=== PATIENT | male | born 1960 | race Caucasian/White ===

== ENCOUNTER 2019-10-14 13:53 | Emergency (ER) | payer OTHER, SELFPAY ==
[2019-10-14 13:58] VITALS: BP 120/82; PULSE 58; RESP 16; TEMP 36.1; O2SAT 96
--- NOTE | 2019-10-14 14:06 | DI.RAD.S_ITS ---
PROCEDURE: XR CHEST 2V INDICATIONS: chest pain TECHNIQUE: 2 views of the chest were acquired. COMPARISON: [facility], , CHEST 1 VIEW, 10/18/2014, 22:59. FINDINGS: Surgical changes and devices: None. Lungs and pleura: Lungs are clear. No pleural effusions or pneumothorax. Mediastinum: Mediastinal contours are normal. Heart size is normal. Bones and chest wall: No suspicious bony abnormalities. Soft tissues appear unremarkable. IMPRESSION: 1. No acute cardiopulmonary disease. Dictated by: Brian De La Garza M.D. on 10/14/2019 at 15:09 Approved by: Brian De La Garza M.D. on 10/14/2019 at 15:16
[2019-10-14 14:42] LABS: Add Manual Diff / Slide Review NO; Basophils Absolute Auto 100 /uL (0-100); Basophils Percent Auto 1.8 % (0-2); Eosinophils Absolute Auto 600 /uL (0-450); Hemoglobin 15.9 g/dL (13.5-17.5); Lymphocytes Absolute Auto 2800 /uL (1100-4500); Lymphocytes Percent Auto 39.4 % (25-40); Mean Corpuscular HGB Conc 35.2 % (30-36); Mean Corpuscular Hemoglobin 33.3 PG (26-34); Mean Corpuscular Volume 94.4 fL (80-100); Monocytes Absolute Auto 700 /uL (0-900); Neutrophils Absolute Auto 2900 /uL (1500-7000); Neutrophils Percent Auto 40.8 % (50-75); Platelet Count 257 X10^3/uL (150-400); Red Blood Cell Count 4.77 X10^6/uL (4.5-5.9); Red Cell Distribution Width 12.3 % (11.6-14.8)
[2019-10-14 14:53] LABS: INR 1.1 (0.9-1.3); Prothrombin Time 12.2 SECONDS (10.1-12.7)
[2019-10-14 14:54] LABS: Alanine Aminotransferase 73 IU/L (<50); Albumin 4.9 g/dL (3.5-5.0); Albumin Globulin Ratio 1.4 (1.0-2.8); Alkaline Phosphatase 72 U/L (38-126); Aspartate Aminotransferase 46 IU/L (17-59); BUN Creatinine Ratio 13.3 (6-22); Bilirubin Total 0.8 mg/dL (0.2-1.3); Blood Urea Nitrogen 12 mg/dL (9-20); Calcium 9.7 mg/dL (8.4-10.2); Carbon Dioxide 27 mmol/L (22-32); Chloride 103 mmol/L (98-107); Creatine Kinase 115 U/L (55-170); Estimated Glomerular Filt Rate > 60.0 mL/min (>60); Globulin 3.5 g/dL (1.7-4.1); Glucose 98 mg/dL (70-100); HEMOLYSIS < 15 (0-50); Lipase 75 U/L (23-300); Potassium 4.3 mmol/L (3.4-5.1); Sodium 139 mmol/L (137-145); Total Protein 8.4 g/dL (6.3-8.2)
--- NOTE | 2019-10-14 14:55 | DI.CT.S_ITS ---
PROCEDURE: CT HEAD/BRAIN WO CON INDICATIONS: Dizziness x 6 days TECHNIQUE: Noncontrast 4.5 mm thick angled axial sections acquired from the foramen magnum to the vertex, with coronal and sagittal reformats. For radiation dose reduction, the following was used: automated exposure control, adjustment of mA and/or kV according to patient size. COMPARISON: None. FINDINGS: Image quality: Excellent. CSF spaces: Basal cisterns are patent. No extra-axial fluid collections. Ventricles are normal in size and shape. Brain: No intracranial hemorrhage, mass, or mass effect. Coy-white matter interface is preserved. Skull and face: Calvarium and visualized facial bones are intact, without suspicious lesions. Sinuses: Visualized sinuses demonstrate moderate mucosal thickening within the maxillary sinuses and mild thickening in the ethmoid sinuses. An air fluid level is demonstrated in the right maxillary sinus suggestive of acute sinusitis. The mastoid air cells are clear. IMPRESSION: 1. No acute intracranial abnormality. 2. Sinus mucosal disease including moderate mucosal thickening in the maxillary sinuses. An air fluid level in the right maxillary sinus is suggestive of acute sinusitis. Dictated by: Brian De La Garza M.D. on 10/14/2019 at 15:06 Approved by: Brian De La Garza M.D. on 10/14/2019 at 15:09
[2019-10-14 14:56] LABS: PTT Partial Thromboplastin Tim 39 SECONDS (26.4-36.2)
[2019-10-14 15:06] LABS: Troponin I < 0.012 ng/mL (0.01-0.034)
[2019-10-14 15:09] LABS: Creatine Kinase MB 1.18 ng/mL (<2.37)
[2019-10-14] MEDS: MECLIZINE HCL 12.5 MG TABLET 50 MG PO (15:42)
--- NOTE | 2019-10-14 18:13 | ED_ITS ---
HPI - Neuro Symptoms/Deficit <SAMANTHA De La Garza - Last Filed: 10/14/19 21:11> General Chief Complaint: Neuro Symptoms/Deficit Stated Complaint: dizzy,nausea,headache since last Time Seen by Provider: 10/14/19 14:39 Source: patient Mode of arrival: Ambulatory Limitations: no limitations History of Present Illness HPI Narrative: The patient is a 58-year-old male former smoker with history of sinus infection who presents with a chief complaint of vertigo that has been ongoing since . Denies any chest pain that is current, did have an episode several days ago and took a nitro and resolved. Denies any current shortness of breath, nausea vomiting or diarrhea. He has not taken anything at home to feel better. He is concerned that his sinus symptoms for the past 6 weeks or so have impacted this. He complains of nasal congestion, sinus headaches that radiate to his jaw and her worse with leaning forward. He states that he occasionally has some postnasal drip, and has had green mucus. He complains of ear pressure, has been using sinus rinse but has not taken any other medications. He states his though he is spinning, states that he has had history of vertigo for years. Complains of general headache and buzzing sensation On Anticoagulants: No Related Data Home Medications Medication Instructions Recorded Confirmed atorvastatin 40 mg PO DAILY 10/14/19 10/14/19 metoprolol tartrate 50 mg PO BID 10/14/19 10/14/19 nitroglycerin [Nitrostat] 0.4 mg SUBLINGUAL PRN PRN 10/14/19 10/14/19 ranitidine HCl 150 mg PO BID 10/14/19 Previous Rx's Medication Instructions Recorded amoxicillin-pot clavulanate 1 tab PO BID #20 tab 10/14/19 meclizine 25 mg PO TID PRN #20 tab 10/14/19 Allergies Allergy/AdvReac Type Severity Reaction Status Date / Time No Known Drug Allergies Allergy Verified 10/14/19 14:04 Review of Systems <SAMANTHA De La Garza - Last Filed: 10/14/19 21:11> Review of Systems Narrative: GENERAL: Denies chills, fatigue, malaise, fever, sweats. HEENT: Denies sinus pain, ear pain, sore throat, difficulty swallowing, dizziness. RESPIRATORY: Denies dyspnea, cough, wheezing, hemoptysis, sputum. CARDIOVASCULAR: Denies chest pain, palpitations, orthopnea, edema, GASTROINTESTINAL: Denies nausea, vomiting, abdominal pain, diarrhea, constipation, melena. : Denies dysuria, frequency, incontinence, hematuria, urinary retention. MUSCULOSKELETAL: denies weakness, joint pain, or bony pain SKIN: Denies rash, skin lesions, or other NEUROLOGIC: Denies weakness, headache, numbness, change in speech, confusion, seizures, incoordination. PSYCHIATRIC: No concerning psychosocial issues. 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 Normocephalic. No temporal or scalp tenderness. EYES: Pupils equal round and reactive. Extraocular motions intact. No scleral icterus. No injection or drainage. ENT: Nose without bleeding, purulent drainage or septal hematoma. Throat without erythema, tonsillar hypertrophy or exudate. Uvula midline. Airway patent. Bulging TMs bilaterally, no erythema. Pain to sinus palpation. Sinus congestion noted NECK: Trachea midline. No JVD or lymphadenopathy. Supple, nontender, no meningeal signs. CARDIOVASCULAR: Regular rate and rhythm RESPIRATORY: Clear to auscultation. Breath sounds equal bilaterally. No wheezes, rales, or rhonchi. No cough. No increased respiratory effort. No accessory muscle use. GASTROINTESTINAL: Abdomen soft, non-tender, nondistended. No hepato- splenomegaly, or palpable masses. No guarding. EXTREMITIES: No clubbing, cyanosis, or edema. No joint tenderness, effusion, or edema noted. BACK: Nontender without deformity or crepitance. No flank tenderness. NEURO: AOx3. Interactive. Stable gait. Strength is equal upper and lower extremities bilaterally. No gross cranial nerve deficit. SKIN: No rash or erythema on visible skin Initial Vital Signs Initial Vital Signs: Vital Signs Temperature 97.0 F L 01/21/20 13:58 Pulse Rate 58 L 10/14/19 13:58 Respiratory Rate 16 10/14/19 13:58 Blood Pressure 120/82 10/14/19 13:58 Pulse Oximetry 96 10/14/19 13:58 <Jahaira Vogel DO - Last Filed: 10/23/19 01:13> Initial Vital Signs Initial Vital Signs: Vital Signs Temperature 97.0 F L 10/14/19 13:58 Pulse Rate 58 L 10/14/19 13:58 Respiratory Rate 16 10/14/19 13:58 Blood Pressure 120/82 10/14/19 13:58 Pulse Oximetry 96 10/14/19 13:58 Course <SAMANTHA De La Garza - Last Filed: 10/14/19 21:11> Orders Ordered: Discontinued Medications Meclizine HCl (Antivert) 50 mg PO NOW ONE Stop: 10/14/19 15:13 Last Admin: 10/14/19 15:42 Dose: 50 mg Documented by: ELIZABETH Vital Signs Vital signs: Vital Signs - 8 hr 10/14/19 13:58 Temperature 97.0 F L Pulse Rate 58 L Respiratory Rate 16 Blood Pressure 120/82 Pulse Oximetry 96 <DO Catalina Marin Last Filed: 10/23/19 01:13> Orders Ordered: Discontinued Medications Meclizine HCl (Antivert) 50 mg PO NOW ONE Stop: 10/14/19 15:13 Last Admin: 10/14/19 15:42 Dose: 50 mg Documented by: ELIZABETH Vital Signs Vital signs: Vital Signs - 8 hr 10/14/19 13:58 Temperature 97.0 F L Pulse Rate 58 L Respiratory Rate 16 Blood Pressure 120/82 Pulse Oximetry 96 MDM - Neuro Symptoms/Deficit <SAMANTHA De La Garza - Last Filed: 10/14/19 21:11> Lab Data Result diagrams: 10/14/19 14:35 10/14/19 14:35 Labs: Lab Results 10/14/19 10/14/19 10/14/19 Range/Units 14:35 14:35 14:35 WBC 7.0 (4.5-11.0) X10^3/uL RBC 4.77 (4.5-5.9) X10^6/uL Hgb 15.9 (13.5-17.5) g/dL Hct 45.0 (41-53) % MCV 94.4 (80-100) fL MCH 33.3 (26-34) PG MCHC 35.2 (30-36) % RDW 12.3 (11.6-14.8) % Plt Count 257 (150-400) X10^3/uL Neut % (Auto) 40.8 L (50-75) % Lymph % (Auto) 39.4 (25-40) % [place] % (Auto) 10.0 (3-14) % Eos % (Auto) 8.0 H (2-4) % Baso % (Auto) 1.8 (0-2) % Neut # (Auto) 2900 (9151-5894) /uL Lymph # (Auto) 2800 (6291-1838) /uL [place] # (Auto) 700 (0-900) /uL Eos # (Auto) 600 H (0-450) /uL Baso # (Auto) 100 (0-100) /uL PT 12.2 (10.1-12.7) SECONDS INR 1.1 (0.9-1.3) APTT 39 H (26.4-36.2) SECONDS Sodium 139 (137-145) mmol/L Potassium 4.3 (3.4-5.1) mmol/L Chloride 103 (98-107) mmol/L Carbon Dioxide 27 (22-32) mmol/L BUN 12 (9-20) mg/dL Creatinine 0.90 (0.66-1.25) mg/dL Estimated GFR > 60.0 (>60) mL/min BUN/Creatinine Ratio 13.3 (6-22) Glucose 98 (70-100) mg/dL Calcium 9.7 (8.4-10.2) mg/dL Total Bilirubin 0.8 (0.2-1.3) mg/dL AST 46 (17-59) IU/L ALT 73 H (<50) IU/L Alkaline Phosphatase 72 (38-126) U/L Total Creatine Kinase 115 (55-170) U/L CK-MB (CK-2) 1.18 (<2.37) ng/mL CK-MB (CK-2) Rel Index 1.0 L (1.5-5.0) % Troponin I < 0.012 (0.01-0.034) ng/mL Total Protein 8.4 H (6.3-8.2) g/dL Albumin 4.9 (3.5-5.0) g/dL Globulin 3.5 (1.7-4.1) g/dL Albumin/Globulin Ratio 1.4 (1.0-2.8) Lipase 75 (23-300) U/L Imaging Data CT scan - head: Radiologist's Impression: [address] [place] [id number] Scan Report Signed Patient: Derick Mcnamara MMR#: [id number] : 2Acct:[id number] Age/Sex: 58 / MDate of Service: 10/14/19 Loc: ED Accession Number: [id number] Procedure: CT head/brain wo con Ordering Provider: Jahaira Richards [facility]- PROCEDURE: CT HEAD/BRAIN WO CON INDICATIONS: Dizziness x 6 days TECHNIQUE: Noncontrast 4.5 mm thick angled axial sections acquired from the foramen magnum to the vertex, with coronal and sagittal reformats. For radiation dose reduction, the following was used: automated exposure control, adjustment of mA and/or kV according to patient size. COMPARISON: None. FINDINGS: Image quality: Excellent. CSF spaces: Basal cisterns are patent. No extra-axial fluid collections. Ventricles are normal in size and shape. Brain: No intracranial hemorrhage, mass, or mass effect. Coy-white matter interface is preserved. Skull and face: Calvarium and visualized facial bones are intact, without suspicious lesions. Sinuses: Visualized sinuses demonstrate moderate mucosal thickening within the maxillary sinuses and mild thickening in the ethmoid sinuses. An air fluid level is de monstrated in the right maxillary sinus suggestive of acute sinusitis. The mastoid air cells are clear. IMPRESSION: 1. No acute intracranial abnormality. 2. Sinus mucosal disease including moderate mucosal thickening in the maxillary sinuses. An air fluid level in the right maxillary sinus is suggestive of acute sinusitis. Dictated by: Brian De La Garza M.D. on 10/14/2019 at 15:06 Approved by: Brian De La Garza M.D. on 10/14/2019 at 15:09 Chest x-ray: Radiologist's Impression: [address] [place] [id number] XRay Report Signed Patient: Derick Mcnamara [facility]#: [id number] : 2Acct:[id number] Age/Sex: 58 / MDate of Service: 10/14/19 Loc: ED Accession Number: [id number] Procedure: XR chest 2V Ordering Provider: Jahaira Vogel D.O. PROCEDURE: XR CHEST 2V INDICATIONS: chest pain TECHNIQUE: 2 views of the chest were acquired. COMPARISON: [facility], CHEST 1 VIEW, 10/18/2014, 22:59. FINDINGS: Surgical changes and devices: None. Lungs and pleura: Lungs are clear. No pleural effusions or pneumothorax. Mediastinum: Mediastinal contours are normal. Heart size is normal. Bones and chest wall: No suspicious bony abnormalities. Soft tissues appear unremarkable. IMPRESSION: 1. No acute cardiopulmonary disease. Dictated by: Brian De La Garza M.D. on 10/14/2019 at 15:09 Approved by: Brian De La Garza M.D. on 10/14/2019 at 15:16 ECG Data Attestation: I personally reviewed and interpreted this ECG as follows: Interpretation: Sinus bradycardia. Ventricular rate 52. P.r. interval 187. QRS 100. viewed by Dr Lela ESPINOSA Narrative Medical decision making narrative: The patient is a 58-year-old male who presents with a chief complaint of dizziness and lightheadedness since . His EKG is not concerning, similar to previous on 10/19/2014, troponin is negative, denies any chest pain. His head CT shows no signs of stroke, lap grossly within normal limits, I feel as though this may be related to worsening sinusitis. He is been using conservative measures at home including sinus rinse, his symptoms have been ongoing for 6 weeks or so at this point. Discussed pros and cons of antibiotics and he elects to treat this point. I discussed the importance of following up with primary care provider in the next few days. Discussed continued hhnb-zhe-ivcwody measures including Flonase, sinus rinse etcetera. Patient and have no questions or concerns upon discharge states understanding of return precautions of any acute concerns including heart attack and stroke and follow-up care with primary care provider in the next few days. <Jahaira Vogel DO - Last Filed: 01/30/20 01:13> Lab Data Labs: Lab Results 10/14/19 10/14/19 10/14/19 Range/Units 14:35 14:35 14:35 WBC 7.0 (4.5-11.0) X10^3/uL RBC 4.77 (4.5-5.9) X10^6/uL Hgb 15.9 (13.5-17.5) g/dL Hct 45.0 (41-53) % MCV 94.4 (80-100) fL MCH 33.3 (26-34) PG MCHC 35.2 (30-36) % RDW 12.3 (11.6-14.8) % Plt Count 257 (150-400) X10^3/uL Neut % (Auto) 40.8 L (50-75) % Lymph % (Auto) 39.4 (25-40) % [place] % (Auto) 10.0 (3-14) % Eos % (Auto) 8.0 H (2-4) % Baso % (Auto) 1.8 (0-2) % Neut # (Auto) 2900 (7102-3291) /uL Lymph # (Auto) 2800 (3348-0971) /uL [place] # (Auto) 700 (0-900) /uL Eos # (Auto) 600 H (0-450) /uL Baso # (Auto) 100 (0-100) /uL PT 12.2 (10.1-12.7) SECONDS INR 1.1 (0.9-1.3) APTT 39 H (26.4-36.2) SECONDS Sodium 139 (137-145) mmol/L Potassium 4.3 (3.4-5.1) mmol/L Chloride 103 (98-107) mmol/L Carbon Dioxide 27 (22-32) mmol/L BUN 12 (9-20) mg/dL Creatinine 0.90 (0.66-1.25) mg/dL Estimated GFR > 60.0 (>60) mL/min BUN/Creatinine Ratio 13.3 (6-22) Glucose 98 (70-100) mg/dL Calcium 9.7 (8.4-10.2) mg/dL Total Bilirubin 0.8 (0.2-1.3) mg/dL AST 46 (17-59) IU/L ALT 73 H (<50) IU/L Alkaline Phosphatase 72 (38-126) U/L Total Creatine Kinase 115 (55-170) U/L CK-MB (CK-2) 1.18 (<2.37) ng/mL CK-MB (CK-2) Rel Index 1.0 L (1.5-5.0) % Troponin I < 0.012 (0.01-0.034) ng/mL Total Protein 8.4 H (6.3-8.2) g/dL Albumin 4.9 (3.5-5.0) g/dL Globulin 3.5 (1.7-4.1) g/dL Albumin/Globulin Ratio 1.4 (1.0-2.8) Lipase 75 (23-300) U/L Discharge Plan Departure Patient Disposition: Home Clinical Impression: Dizziness Acute sinus infection Qualifiers: Sinusitis location: unspecified location Recurrence: not specified as recurrent Qualified Code(s): J01.90 - Acute sinusitis, unspecified Discharge Date/Time: 10/14/19 16:54 Instructions: DI for Sinusitis, DI for Vertigo, DI for Dizziness-Nonvertigo Activity Restrictions/Additional Instructions: Please follow-up with primary care provider in the next few days. As discussed, you have had vertigo symptoms for several days now, however your lab work comes up normal. Your imaging shows no acute signs of stroke. We have elected to treat her sinus infection given your symptoms. I sent a prescri ption of Augmentin as well as meclizine to the [facility] pharmacy. Please come back to the emergency department for any acute concerns such as chest pain, shortness of breath etcetera Prescriptions: New amoxicillin-pot clavulanate 875-125 mg tablet 1 tab PO BID Qty: 20 RF: 0 meclizine 25 mg tablet 25 mg PO TID PRN (Reason: dizziness) Qty: 20 RF: 0 No Action atorvastatin 40 mg tablet 40 mg PO DAILY RF: 0 ranitidine HCl 150 mg tablet 150 mg PO BID RF: 0 metoprolol tartrate 50 mg tablet 50 mg PO BID RF: 0 nitroglycerin [Nitrostat] 0.4 mg tablet, sublingual 0.4 mg sublingual PRN PRN (Reason: Chest Pain) RF: 0 Referrals: Dreick Parks PA-C [Non-Staff] - Freida Holbrook MD [Primary Care Provider] -
== END 2019-10-14 16:54 | disposition home or self-care (01) ==
PROVIDERS: Emergency Medicine; Emergency Provider Nurse Practitioner Family; Family Provider Family Medicine; PCP Family Medicine
DX: R42 Dizziness and giddiness (principal); J01.90 Acute sinusitis, unspecified; R00.1 Bradycardia, unspecified; R07.9 Chest pain, unspecified; R09.82 Postnasal drip
CPT/HCPCS: 70450; 71046; 80053; 82550; 82553; 83690; 84484; 85025; 85610; 85730; 93005; 93010; 99284; 99285

== ENCOUNTER → 2021-09-28 09:11 | Outpatient (CLI) | payer OTHER, SELFPAY ==
--- NOTE | 2021-09-28 09:14 | DI.RAD.S_ITS ---
PROCEDURE: FL BARIUM SWALLOW W SPEECH INDICATIONS: Other dysphagia COMPARISON: None. TECHNIQUE: Examination was conducted in conjunction with speech pathology per standard protocol. In the lateral projection, filming was performed of the patient swallowing. AP projection filming may also be performed with patient swallowing. COMPARISON: FINDINGS: Function: The oral preparatory phase appears normal, with proper containment. The subsequent oral propulsive phase, pharyngeal phase, and esophageal phase of swallowing also appear normal with all proffered substances. No laryngotracheal penetration or aspiration. Bilateral vallecular pooling is noted which is most pronounced with higher viscosity fluids, semi solids and solids. Morphology: No cricopharyngeal bar is identified. No cervical esophageal webs. No Zenker's diverticulum. No strictures. IMPRESSION: 1. Bilateral vallecular pooling. 2. No laryngotracheal penetration or aspiration. Dictated by: Drea Espinosa MD, PhD on 09/28/2021 at 12:45 Approved by: Drea Espinosa MD, PhD on 09/28/2021 at 12:46
--- NOTE | 2021-09-28 17:36 | ST.SWALLOW ---
Visit Care Team Role Provider Type Bartolome Rosenthal PA-C Primary Care Provider Non-Staff Specialty: Medical Address: [address] [place] [address], [id number] Phone: Email: Freida Holbrook MD Family Provider Non-Staff Specialty: Family Practice Address: Email: Greg Solorzano MD Attending Provider Physician Referring Provider Specialty: Ear, Nose, Throat Address: [address] [place] [address], [id number] Email: [email or web address] Modified Barium Swallow Study [employer] Modified Barium Swallow Study Start: 09/28/21 16:57 Freq: Status: Active Protocol: Document 09/28/21 16:57 NIA (Rec: 09/28/21 17:36 NIA [id number]) Modified Barium Swallow Study Total Time Visit Start Time 09:40 Visit Stop Time 10:10 Total Visit Minutes [address] Greg Solorzano Reason for Referral Dysphagia Setting Setting Outpatient Care Patient Information Identification Type Name,ID Card Patient History The pt is a 60-yr-old male with c/o sticking sensation at mid to upper level of throat with items such as pills, dry, and sticky textures. Pt stated, They are at the place where they're about to go down the wrong way. These often require extensive swallows of liquid to clear. He denies difficulty with liquids. Patient Positioning Position View Lat-A/P Imaging Lateral View Textures Administered Trials Presented Thin Liquid via Spoon,Thin Liquid via Cup,[place] Liquid via Spoon,[place] Liquid via Cup,Honey Liquid via Spoon, Dysphagia Blenderized Textures ,Regular Textures Oral Phase Source: MBSIMP (TM) (C) Bolus Specific Scoring Grid Lip Closure No Impairment (WNL) Tongue Control During Bolus Hold No Impairment (WNL) Bolus Prep/Mastication No Impairment (WNL) Bolus Transport/Lingual Motion No Impairment (WNL) A/P Lingual Propulsion Delay No Oral Residue WFL Residue Clearing No Impairment (WNL) Nasal Regurgitation No Additional Oral Phase Observations Oral Peripheral Exam: WNL of symmetry, strength, coordination and ROM. Pt has natural dentition in adequate condition for age. Oral prep and swallow phases are WNL. Pharyngeal Phase Source: MBSIMP (TM) (C) Bolus Specific Scoring Grid Delayed Initiation of Pharyngeal Swallow No Soft Palate Elevation No Impairment (WNL) Tongue Base Strength/Range of Motion Mild Impairment Residue Along the Tongue Base Yes: Mild Clearance of Residue Along Tongue Base WFL Laryngeal Elevation Minimal Impairment Anterior Hyoid Movement Minimal Impairment Epiglottic Range of Motion No Impairment (WNL) Vallecular Residue Yes: Increased with bolus bulk Clearance of Vallecular Residue Moderate Impairment Laryngeal Vestibular Closure No Impairment (WNL) Pharyngeal Stripping Wave Moderate Impairment Pharyngeal Contraction WFL Posterior Pharyngeal Wall Residue No Upper Esophageal Sphincter Opening Mild Impairment Clearance of Residue in the Pyriform Minimal Impairment Sinuses Esophageal Clearance Upright Position WFL Pharyngoesophageal Backflow Observed No Additional Pharyngeal Phase Observations No laryngeal penetration or tracheal aspiration. Reduced strength at base of tongue and pharyngeal constrictors results in moderate vallecular residue that requires multiple swallows of liquid to clear, despite complete epiglottic inversion. This is consistent with the pt's reports of sticking sensation. Additionally, the UES extension and duration of opening is mildly impaired secondary to mildly reduced hyolaryngeal elevation and anterior excursion. This results in trace to mild residue at pyriform sinuses, left side minimally greater than right. Trace to mild residue was also noted consistently just below UES, possibly the result of shortened duration of UES opening. A/P View Textures Administered Trials Presented [place] Liquid via Cup,Barium Tablet A/P View Observations Pharyngeal Contraction WFL Esophageal Function WFL Additional Observations Mild residue was observed in the esophagus, which does not appear to be significant. A 13mm barium tablet passed the oral cavity and pharynx to LES without delay, followed by short delay at LES requiring additional swallow of water to clear. Clinical Impressions Dysphagia Type Mild Pharyngeal Dysphagia Findings The pt presents with mild pharyngeal dysphagia secondary to mild weakness of musculature resulting in moderate vallecular residue and reduced extension and duration of UES opening, causing minimal residue at pyriform sinuses and proximal esophagus. The pt is an excellent candidate for outpatient dysphgia therapy targeting strengthening of musculature. The pt was educated on these findings and recommendations, as well as safe swallow strategies. He verbalized understanding and was agreeable to treatment. Rehabilitation Potential Excellent Patient Appropriate for Therapy Yes Recommendations Diet Liquids Order Thin Diet Order Regular Medication Recommendation As Tolerated Comments Avoid dry, sticky consistencies. Aspiration Precautions Recommended Precautions Upright at 90 Degrees, Alternate Liquids/Solids,Small Bites/Sips,Double Swallow Treatment Plan Therapy Recommendations Outpatient Speech Therapy Short Term Goals 1. The pt will perform exercises to increase strength , coordination, and ROM of laryngeal and pharyngeal musculature to improve efficiency of swallow and pt safety and comfort with oral intake. 2. The pt will follow safe swallow strategies to reduce risk of aspiration and increase comfort with oral intake. Oil Laboratory Analyst Goals The pt will tolerate least restrictive diet to meet his nutrition and hydration needs.
== END ==
PROVIDERS: Family Provider Family Medicine; PCP Physician Assistant; Referring Provider Otolaryngology; Visit Provider Otolaryngology
DX: R13.19 Other dysphagia (principal)
CPT/HCPCS: 74230; 92611

== ENCOUNTER 2021-12-11 16:36 | Observation (INO) | payer OTHER, SELFPAY ==
[2021-12-11] VITALS (18 sets, daily range): BP systolic 106–154; BP diastolic 61–94; PULSE 51–88; RESP 14–18; TEMP 36.6; O2SAT 94–99; BMI 26.4
--- NOTE | 2021-12-11 16:44 | DI.RAD.S_ITS ---
PROCEDURE: XR CHEST 1V INDICATIONS: chest pain TECHNIQUE: One view of the chest was acquired. COMPARISON: [facility], , CHEST 1 VIEW, 10/18/2014, 22:59. [facility], , XR CHEST 2V, 10/14/2019, 14:17. FINDINGS: Surgical changes and devices: None. Lungs and pleura: Lungs are clear. No pleural effusions or pneumothorax. Mediastinum: Mediastinal contours appear normal. Heart size is normal. Bones and chest wall: No suspicious bony lesions. Overlying soft tissues appear unremarkable. IMPRESSION: Portable chest within normal limits. Dictated by: Jigar Ramirez M.D. on 12/11/2021 at 16:28 Approved by: Jigar Ramirez M.D. on 12/11/2021 at 16:28
[2021-12-11 16:57] LABS: Add Manual Diff / Slide Review NO; Basophils Absolute Auto 200 /uL (0-100); Basophils Percent Auto 2.6 % (0-2); Eosinophils Absolute Auto 600 /uL (0-450); Eosinophils Percent Auto 9.3 % (2-4); Hematocrit 42.2 % (41-53); Hemoglobin 14.6 g/dL (13.5-17.5); Lymphocytes Absolute Auto 3300 /uL (1100-4500); Lymphocytes Percent Auto 48.5 % (25-40); Mean Corpuscular HGB Conc 34.6 % (30-36); Mean Corpuscular Hemoglobin 32.1 PG (26-34); Mean Corpuscular Volume 92.9 fL (80-100); Monocytes Absolute Auto 700 /uL (0-900); Monocytes Percent Auto 9.5 % (3-14); Neutrophils Absolute Auto 2100 /uL (1500-7000); Neutrophils Percent Auto 30.1 % (50-75); Platelet Count 228 X10^3/uL (150-400); Red Blood Cell Count 4.54 X10^6/uL (4.5-5.9); Red Cell Distribution Width 12.2 % (11.6-14.8); White Blood Cell Count 6.9 X10^3/uL (4.5-11.0)
[2021-12-11 17:07] LABS: Alanine Aminotransferase 60 IU/L (<50); Albumin 4.2 g/dL (3.5-5.0); Albumin Globulin Ratio 1.3 (1.0-2.8); Alkaline Phosphatase 60 U/L (38-126); Aspartate Aminotransferase 47 IU/L (17-59); BUN Creatinine Ratio 16.7 (6-22); Bilirubin Total 0.7 mg/dL (0.2-1.3); Blood Urea Nitrogen 15 mg/dL (9-20); Calcium 9.3 mg/dL (8.4-10.2); Carbon Dioxide 29 mmol/L (22-32); Chloride 105 mmol/L (98-107); Creatine Kinase 83 U/L (55-170); Estimated Glomerular Filt Rate > 60.0 mL/min (>60); Globulin 3.2 g/dL (1.7-4.1); Glucose 97 mg/dL (80-110); HEMOLYSIS 15 (0-50); Lipase 76 U/L (23-300); Sodium 139 mmol/L (137-145); Total Protein 7.4 g/dL (6.3-8.2)
[2021-12-11 17:17] LABS: Troponin I < 0.012 ng/mL (0.01-0.034)
--- NOTE | 2021-12-11 17:24 | ED.CHESTPAIN ---
HPI - Chest Pain <Zac Walter PA-C - Last Filed: 12/11/21 19:54> General Chief Complaint: Chest Pain Stated Complaint: CHEST PAIN Time Seen by Provider: 12/11/21 17:13 History of Present Illness HPI narrative: Patient is a 61-year-old male who presents the ED complaining of substernal chest pain that does not radiate that he describes as a burning sensation that started approximately 1-1/2 hours prior to arrival. Patient reports that he was on his way home from a friend's house when he started experiencing this severe substernal chest pain. He took 1 nitro sublingual that seemed to alleviate his symptoms and he presents with mild chest pain at this point that he is rating it 2/10. Had a previous acute ME back in 2019 with similar symptoms that he is experiencing today and as result of that he presents to the ED. He denies any diaphoresis any nausea or vomiting or syncope. He reports his last acute ME he did have episodes of diaphoresis and nausea that are different from this episode. He has a history of reflux and he recently had a checkup by his PCP and was told that his cholesterol is within normal limits. Related Data Home Medications Medication Instructions Recorded Confirmed atorvastatin 40 mg tablet 40 mg PO DAILY 10/14/19 10/14/19 metoprolol tartrate 50 mg tablet 50 mg PO BID 10/14/19 10/14/19 nitroglycerin 0.4 mg sublingual 0.4 mg SUBLINGUAL PRN PRN 10/14/19 10/14/19 tablet (Nitrostat) ranitidine HCl 150 mg tablet 150 mg PO BID 10/14/19 Previous Rx's Medication Instructions Recorded amoxicillin 875 mg-potassium 1 tab PO BID #20 tab 10/14/19 clavulanate 125 mg tablet meclizine 25 mg tablet 25 mg PO TID PRN #20 tab 10/14/19 Allergies Allergy/AdvReac Type Severity Reaction Status Date / Time No Known Drug Allergies Allergy Verified 10/14/19 14:04 Review of Systems <Zac Walter PA-C - Last Filed: 12/11/21 19:54> Review of Systems ROS Unobtainable: All systems reviewed & are unremarkable except as noted in HPI and below Constitutional Constitutional: Denies chills, Denies fatigue, Denies fever(s), Denies frequent falls, Denies lethargy and Denies weakness Eyes Eyes: Denies change in vision, Denies eye discharge, Denies irritation and Denies loss of vision ENT Ears, Nose, Mouth, and Throat: Denies change in voice, Denies dizziness, Denies neck pain, Denies sore throat and Denies throat swelling Cardiovascular Cardiovascular: Reports chest pain, Denies irregular heart rhythm, Denies lightheadedness, Denies palpitations, Denies dyspnea, Denies dyspnea on exertion and Denies orthopnea Respiratory Respiratory: Denies cough, Denies dyspnea, Denies dyspnea on exertion and Denies wheezing Gastrointestinal Gastrointestinal: Denies abdominal pain, Denies change in bowel habits, Denies diarrhea, Denies nausea and Denies vomiting Genitourinary Genitourinary: Denies hematuria, Denies flank pain, Denies urinary incontinence and Denies urinary urgency Musculoskeletal Musculoskeletal: Denies back pain, Denies muscle weakness, Denies neck pain, Denies numbness and Denies tingling Integumentary/Breasts Skin/Breast: Denies pruritus, Denies erythema, Denies rash and Denies wounds Neurologic Neurologic: Denies behavioral changes, Denies confusion, Denies dizziness, Denies frequent falls, Denies loss of vision, Denies numbness, Denies tingling and Denies weakness Psychiatric Psychiatric: Denies anxiety, Denies behavioral changes, Denies confusion, Denies depression, Denies homicidal ideation and Denies suicidal ideation Endocrine Endocrine: Denies fatigue, Denies flushing and Denies palpitations Hematologic/Lymphatic Hematologic/Lymphatic: Denies easy bruising Allergic/Immunologic Allergic/Immunologic: Denies urticaria, Denies throat swelling and Denies wheezing Patient History <Zac Walter PA-C - Last Filed: 12/11/21 19:54> Social History Smoking Status: Former smoker Smoking Status: Former smoker alcohol intake frequency: a few times a week Substance Use Type: does not use Exam <Zac Walter PA-C - Last Filed: 12/11/21 19:54> Initial Vital Signs Initial Vital Signs: Vital Signs Temperature 97.8 F 12/11/21 16:51 Pulse Rate 54 L 12/11/21 16:51 Respiratory Rate 16 12/11/21 16:51 Blood Pressure 154/84 H 12/11/21 16:51 Pulse Oximetry 97 12/11/21 16:51 Const General: cooperative, healthy appearing, comfortable and well developed Nutritional Appearance: average body habitus Orientation: Orientation [facility] Head: normal to inspection and normocephalic Ears: hearing grossly normal bilaterally and external ears normal Nose: external nose normal Face and sinus: normal facial exam Resp Effort & Inspection: normal respiratory effort and able to speak in complete sentences Auscultation: clear to auscultation bilaterally Percussion: percussion normal Cardio Palpation: normal PMI Rate: regular rate Rhythm: regular rhythm Heart Sounds: S1 normal and S2 normal GI Inspection: normal to inspection Palpation: soft Percussion: normal to percussion Auscultation: normal bowel sounds Skin General: no rashes or lesions noted <Annmarie Drake DO - Last Filed: 12/12/21 05:50> Initial Vital Signs Initial Vital Signs: Vital Signs Temperature 97.8 F 12/11/21 16:51 Pulse Rate 54 L 12/11/21 16:51 Respiratory Rate 16 12/11/21 16:51 Blood Pressure 154/84 H 12/11/21 16:51 Pulse Oximetry 97 12/11/21 16:51 Course <Zac Walter PA-C - Last Filed: 12/11/21 19:54> Orders Ordered: ED Orders 12/11/21 23:10 COVID19 -Nasal swab/Pre-Proc Stat Acetaminophen (Acetaminophen 325 Mg Tablet) 650 mg PO Q6HR PRN PRN Reason: Fever/Mild Pain (1-3) Aspirin (Aspirin Ec 81 Mg Tablet) 81 mg PO DAILY [facility] Atorvastatin Calcium (Atorvastatin 20 Mg Tablet) 40 mg PO DAILY [facility] Enoxaparin Sodium (Enoxaparin 40 Mg/0.4 Ml Syringe) 40 mg SUBCUT DAILY [facility] Metoprolol Tartrate (Metoprolol Ir 50 Mg Tablet) 50 mg PO BID [facility] Morphine Sulfate (Morphine 2 Mg/Ml Inj) 2 mg IV Q5MIN PRN PRN Reason: Chest Pain Naloxone HCl (Naloxone 0.4 Mg/Ml Vial) 0.2 mg IV Q2MIN PRN PRN Reason: Opiate Reversal Nitroglycerin (Nitroglycerin 0.4 Mg Sl Tab) 0.4 mg SL [id number] PRN PRN Reason: Chest Pain Discontinued Medications Aspirin (Aspirin 81 Mg Chew Tab) 324 mg PO NOW ONE Stop: 12/11/21 21:45 Last Admin: 12/11/21 22:10 Dose: 324 mg Documented by: KEYANA Reevaluation(s) Reevaluation #1: Patient continuing to be pain-free at this time vital signs remained stable repeat cardiac panel an EKG was ordered. Vital Signs Vital signs: Vital Signs - 8 hr 12/11/21 22:00 12/11/21 22:30 12/11/21 23:00 Pulse Rate 59 L 55 L 52 L Respiratory Rate 16 17 15 Blood Pressure 112/67 115/65 126/71 Pulse Oximetry 94 95 94 12/11/21 23:30 12/12/21 00:00 12/12/21 00:30 Pulse Rate 58 L 59 L 54 L Respiratory Rate 15 16 9 L Blood Pressure 113/67 123/61 Pulse Oximetry 94 93 95 12/12/21 01:00 Pulse Rate 60 Respiratory Rate 14 Blood Pressure Pulse Oximetry 92 <Annmarie Drake DO - Last Filed: 12/12/21 05:50> Orders Ordered: ED Orders 12/11/21 23:10 COVID19 -Nasal swab/Pre-Proc Stat Acetaminophen (Acetaminophen 325 Mg Tablet) 650 mg PO Q6HR PRN PRN Reason: Fever/Mild Pain (1-3) Aspirin (Aspirin Ec 81 Mg Tablet) 81 mg PO DAILY [facility] Atorvastatin Calcium (Atorvastatin 20 Mg Tablet) 40 mg PO DAILY [facility] Enoxaparin Sodium (Enoxaparin 40 Mg/0.4 Ml Syringe) 40 mg SUBCUT DAILY [facility] Metoprolol Tartrate (Metoprolol Ir 50 Mg Tablet) 50 mg PO BID [facility] Morphine Sulfate (Morphine 2 Mg/Ml Inj) 2 mg IV Q5MIN PRN PRN Reason: Chest Pain Naloxone HCl (Naloxone 0.4 Mg/Ml Vial) 0.2 mg IV Q2MIN PRN PRN Reason: Opiate Reversal Nitroglycerin (Nitroglycerin 0.4 Mg Sl Tab) 0.4 mg SL [id number] PRN PRN Reason: Chest Pain Discontinued Medications Aspirin (Aspirin 81 Mg Chew Tab) 324 mg PO NOW ONE Stop: 12/11/21 21:45 Last Admin: 12/11/21 22:10 Dose: 324 mg Documented by: KEYANA Vital Signs Vital signs: Vital Signs - 8 hr 12/11/21 22:00 12/11/21 22:30 12/11/21 23:00 Pulse Rate 59 L 55 L 52 L Respiratory Rate 16 17 15 Blood Pressure 112/67 115/65 126/71 Pulse Oximetry 94 95 94 12/11/21 23:30 12/12/21 00:00 12/12/21 00:30 Pulse Rate 58 L 59 L 54 L Respiratory Rate 15 16 9 L Blood Pressure 113/67 123/61 Pulse Oximetry 94 93 95 12/12/21 01:00 Pulse Rate 60 Respiratory Rate 14 Blood Pressure Pulse Oximetry 92 MDM - Chest Pain <Zac Walter PA-C - Last Filed: 12/11/21 19:54> Differential Diagnosis Differential diagnosis: Likely unstable angina pectoris Lab Data Result diagrams: 12/11/21 16:49 12/11/21 16:49 Labs: Lab Results 12/11/21 12/11/21 12/11/21 Range/Units 16:49 16:49 17:59 WBC 6.9 (4.5-11.0) X10^3/uL RBC 4.54 (4.5-5.9) X10^6/uL Hgb 14.6 (13.5-17.5) g/dL Hct 42.2 (41-53) % MCV 92.9 (80-100) fL MCH 32.1 (26-34) PG MCHC 34.6 (30-36) % RDW 12.2 (11.6-14.8) % Plt Count 228 (150-400) X10^3/uL Neut % (Auto) 30.1 L (50-75) % Lymph % (Auto) 48.5 H (25-40) % [place] % (Auto) 9.5 (3-14) % Eos % (Auto) 9.3 H (2-4) % Baso % (Auto) 2.6 H (0-2) % Neut # (Auto) 2100 (1873-8894) /uL Lymph # (Auto) 3300 (1934-8622) /uL [place] # (Auto) 700 (0-900) /uL Eos # (Auto) 600 H (0-450) /uL Baso # (Auto) 200 H (0-100) /uL Sodium 139 (137-145) mmol/L Potassium 4.0 (3.4-5.1) mmol/L Chloride 105 (98-107) mmol/L Carbon Dioxide 29 (22-32) mmol/L BUN 15 (9-20) mg/dL Creatinine 0.90 (0.66-1.25) mg/dL Estimated GFR > 60.0 (>60) mL/min BUN/Creatinine Ratio 16.7 (6-22) Glucose 97 (80-110) mg/dL Calcium 9.3 (8.4-10.2) mg/dL Magnesium 2.0 (1.6-2.3) mg/dL Total Bilirubin 0.7 (0.2-1.3) mg/dL AST 47 (17-59) IU/L ALT 60 H (<50) IU/L Alkaline Phosphatase 60 (38-126) U/L Total Creatine Kinase 83 (55-170) U/L CK-MB (CK-2) TNP CK-MB (CK-2) Rel Index TNP Troponin I < 0.012 (0.01-0.034) ng/mL Total Protein 7.4 (6.3-8.2) g/dL Albumin 4.2 (3.5-5.0) g/dL Globulin 3.2 (1.7-4.1) g/dL Albumin/Globulin Ratio 1.3 (1.0-2.8) Lipase 76 (23-300) U/L Urine Color Yellow Urine Appearance Clear Urine pH 6.5 (4.5-8.0) Ur Specific [place] <=1.005 (1.000-1.035) Urine Protein Negative (Negative) Urine Glucose (UA) Negative (Negative) g/dL Urine Ketones Negative (NEGATIVE) Urine Occult Blood Negative (Negative) Urine Nitrate Negative (Negative) Urine Bilirubin Negative (NEGATIVE) Urine Urobilinogen 0.2 (0.2) E.U./dL Ur Leukocyte Esterase Negative (NEGATIVE) Urine RBC None seen (0-5/HPF) Urine WBC None seen (0-5/HPF) Ur Squamous Epith Cells 0-1 /hpf (0-5/HPF) Urine Bacteria None seen (None) Ur Culture Indicated? Cult not indicated SARS-CoV-2 (PCR) (Negative) 12/11/21 12/11/21 Range/Units 20:02 23:10 WBC (4.5-11.0) X10^3/uL RBC (4.5-5.9) X10^6/uL Hgb (13.5-17.5) g/dL Hct (41-53) % MCV (80-100) fL MCH (26-34) PG MCHC (30-36) % RDW (11.6-14.8) % Plt Count (150-400) X10^3/uL Neut % (Auto) (50-75) % Lymph % (Auto) (25-40) % [place] % (Auto) (3-14) % Eos % (Auto) (2-4) % Baso % (Auto) (0-2) % Neut # (Auto) (7275-5837) /uL Lymph # (Auto) (1062-9148) /uL [place] # (Auto) (0-900) /uL Eos # (Auto) (0-450) /uL Baso # (Auto) (0-100) /uL Sodium (137-145) mmol/L Potassium (3.4-5.1) mmol/L Chloride (98-107) mmol/L Carbon Dioxide (22-32) mmol/L BUN (9-20) mg/dL Creatinine (0.66-1.25) mg/dL Estimated GFR (>60) mL/min BUN/Creatinine Ratio (6-22) Glucose (80-110) mg/dL Calcium (8.4-10.2) mg/dL Magnesium (1.6-2.3) mg/dL Total Bilirubin (0.2-1.3) mg/dL AST (17-59) IU/L ALT (<50) IU/L Alkaline Phosphatase (38-126) U/L Total Creatine Kinase 80 (55-170) U/L CK-MB (CK-2) TNP CK-MB (CK-2) Rel Index TNP Troponin I < 0.012 (0.01-0.034) ng/mL Total Protein (6.3-8.2) g/dL Albumin (3.5-5.0) g/dL Globulin (1.7-4.1) g/dL Albumin/Globulin Ratio (1.0-2.8) Lipase (23-300) U/L Urine Color Urine Appearance Urine pH (4.5-8.0) Ur Specific [place] (1.000-1.035) Urine Protein (Negative) Urine Glucose (UA) (Negative) g/dL Urine Ketones (NEGATIVE) Urine Occult Blood (Negative) Urine Nitrate (Negative) Urine Bilirubin (NEGATIVE) Urine Urobilinogen (0.2) E.U./dL Ur Leukocyte Esterase (NEGATIVE) Urine RBC (0-5/HPF) Urine WBC (0-5/HPF) Ur Squamous Epith Cells (0-5/HPF) Urine Bacteria (None) Ur Culture Indicated? SARS-CoV-2 (PCR) Negative (Negative) Imaging Data Chest x-ray: Radiologist's Impression: PROCEDURE:? XR CHEST 1V ? INDICATIONS:? chest pain ? TECHNIQUE:? One view of the chest was acquired.? ? COMPARISON:? [facility], , CHEST 1 VIEW, 10/18/2014, 22:59.? [facility], , XR CHEST 2V, 10/14/2019, 14:17. ? FINDINGS:? ? Surgical changes and devices:? None.? ? Lungs and pleura:? Lungs are clear.? No pleural effusions or pneumothorax.? ? Mediastinum:? Mediastinal contours appear normal.? Heart size is normal.? ? Bones and chest wall:? No suspicious bony lesions.? Overlying soft tissues appear unremarkable.? IMPRESSION:? ? Portable chest within normal limits. ? ? ? Dictated by: Jigar Ramirez M.D. on 12/11/2021 at 16:28 ? ? Approved by: Jigar Ramirez M.D. on 12/11/2021 at 16:28?? ECG Data Attestation: I personally reviewed and interpreted this ECG as follows: Prior ECG tracings: not available for review Interpretation: Twelve lead EKG shows no acute changes sinus bradycardia. MDM Narrative Medical decision making narrative: Patient was evaluated today for chest pain. Has a previous ME 3 years ago and states that the chest pain he started having today was similar to his previous ME. He described the pain to be a substernal nonradiating he did take 1 nitro prior to arrival which seemed to help alleviate some of his pain. EKG showed sinus bradycardia with no evidence of STEMI and cardiac panel was essentially negative patient is being observed in the ER for the 2nd round of cardiac enzymes and a 2nd EKG of which a decision to admit her discharge will be made. <Annmarie Drake, DO - Last Filed: 12/12/21 05:50> Lab Data Labs: Lab Results 12/11/21 12/11/21 12/11/21 Range/Units 16:49 16:49 17:59 WBC 6.9 (4.5-11.0) X10^3/uL RBC 4.54 (4.5-5.9) X10^6/uL Hgb 14.6 (13.5-17.5) g/dL Hct 42.2 (41-53) % MCV 92.9 (80-100) fL MCH 32.1 (26-34) PG MCHC 34.6 (30-36) % RDW 12.2 (11.6-14.8) % Plt Count 228 (150-400) X10^3/uL Neut % (Auto) 30.1 L (50-75) % Lymph % (Auto) 48.5 H (25-40) % [place] % (Auto) 9.5 (3-14) % Eos % (Auto) 9.3 H (2-4) % Baso % (Auto) 2.6 H (0-2) % Neut # (Auto) 2100 (6784-9563) /uL Lymph # (Auto) 3300 (9360-9233) /uL [place] # (Auto) 700 (0-900) /uL Eos # (Auto) 600 H (0-450) /uL Baso # (Auto) 200 H (0-100) /uL Sodium 139 (137-145) mmol/L Potassium 4.0 (3.4-5.1) mmol/L Chloride 105 (98-107) mmol/L Carbon Dioxide 29 (22-32) mmol/L BUN 15 (9-20) mg/dL Creatinine 0.90 (0.66-1.25) mg/dL Estimated GFR > 60.0 (>60) mL/min BUN/Creatinine Ratio 16.7 (6-22) Glucose 97 (80-110) mg/dL Calcium 9.3 (8.4-10.2) mg/dL Magnesium 2.0 (1.6-2.3) mg/dL Total Bilirubin 0.7 (0.2-1.3) mg/dL AST 47 (17-59) IU/L ALT 60 H (<50) IU/L Alkaline Phosphatase 60 (38-126) U/L Total Creatine Kinase 83 (55-170) U/L CK-MB (CK-2) TNP CK-MB (CK-2) Rel Index TNP Troponin I < 0.012 (0.01-0.034) ng/mL Total Protein 7.4 (6.3-8.2) g/dL Albumin 4.2 (3.5-5.0) g/dL Globulin 3.2 (1.7-4.1) g/dL Albumin/Globulin Ratio 1.3 (1.0-2.8) Lipase 76 (23-300) U/L Urine Color Yellow Urine Appearance Clear Urine pH 6.5 (4.5-8.0) Ur Specific [place] <=1.005 (1.000-1.035) Urine Protein Negative (Negative) Urine Glucose (UA) Negative (Negative) g/dL Urine Ketones Negative (NEGATIVE) Urine Occult Blood Negative (Negative) Urine Nitrate Negative (Negative) Urine Bilirubin Negative (NEGATIVE) Urine Urobilinogen 0.2 (0.2) E.U./dL Ur Leukocyte Esterase Negative (NEGATIVE) Urine RBC None seen (0-5/HPF) Urine WBC None seen (0-5/HPF) Ur Squamous Epith Cells 0-1 /hpf (0-5/HPF) Urine Bacteria None seen (None) Ur Culture Indicated? Cult not indicated SARS-CoV-2 (PCR) (Negative) 12/11/21 12/11/21 Range/Units 20:02 23:10 WBC (4.5-11.0) X10^3/uL RBC (4.5-5.9) X10^6/uL Hgb (13.5-17.5) g/dL Hct (41-53) % MCV (80-100) fL MCH (26-34) PG MCHC (30-36) % RDW (11.6-14.8) % Plt Count (150-400) X10^3/uL Neut % (Auto) (50-75) % Lymph % (Auto) (25-40) % [place] % (Auto) (3-14) % Eos % (Auto) (2-4) % Baso % (Auto) (0-2) % Neut # (Auto) (0397-0654) /uL Lymph # (Auto) (5927-0938) /uL [place] # (Auto) (0-900) /uL Eos # (Auto) (0-450) /uL Baso # (Auto) (0-100) /uL Sodium (137-145) mmol/L Potassium (3.4-5.1) mmol/L Chloride (98-107) mmol/L Carbon Dioxide (22-32) mmol/L BUN (9-20) mg/dL Creatinine (0.66-1.25) mg/dL Estimated GFR (>60) mL/min BUN/Creatinine Ratio (6-22) Glucose (80-110) mg/dL Calcium (8.4-10.2) mg/dL Magnesium (1.6-2.3) mg/dL Total Bilirubin (0.2-1.3) mg/dL AST (17-59) IU/L ALT (<50) IU/L Alkaline Phosphatase (38-126) U/L Total Creatine Kinase 80 (55-170) U/L CK-MB (CK-2) TNP CK-MB (CK-2) Rel Index TNP Troponin I < 0.012 (0.01-0.034) ng/mL Total Protein (6.3-8.2) g/dL Albumin (3.5-5.0) g/dL Globulin (1.7-4.1) g/dL Albumin/Globulin Ratio (1.0-2.8) Lipase (23-300) U/L Urine Color Urine Appearance Urine pH (4.5-8.0) Ur Specific [place] (1.000-1.035) Urine Protein (Negative) Urine Glucose (UA) (Negative) g/dL Urine Ketones (NEGATIVE) Urine Occult Blood (Negative) Urine Nitrate (Negative) Urine Bilirubin (NEGATIVE) Urine Urobilinogen (0.2) E.U./dL Ur Leukocyte Esterase (NEGATIVE) Urine RBC (0-5/HPF) Urine WBC (0-5/HPF) Ur Squamous Epith Cells (0-5/HPF) Urine Bacteria (None) Ur Culture Indicated? SARS-CoV-2 (PCR) Negative (Negative) ECG Data Interpretation: Twelve lead EKG shows no acute changes sinus bradycardia. Noelle-EKG 1. Rhythm rate 54 [place] interval 180 QRS 90 QTC 402 T-wave inversion noted in lead 3 only summoned to previous EKG in 2019 EKG 2. Normal sinus rhythm rate 52 [place] interval 190 QRS [address] changes similar to prior MDM Narrative Medical decision making narrative: Patient was evaluated today for chest pain. Has a previous ME 3 years ago and states that the chest pain he started having today was similar to his previous ME. He described the pain to be a substernal nonradiating he did take 1 nitro prior to arrival which seemed to help alleviate some of his pain. EKG showed sinus bradycardia with no evidence of STEMI and cardiac panel was essentially negative patient is being observed in the ER for the 2nd round of cardiac enzymes and a 2nd EKG of which a decision to admit her discharge will be made. Dr. Drake-I received sign-out from Dr. Walter seen evaluated patient myself. Patient is currently chest pain-free. 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 He was previously followed by cardiology but has not actually seen them and number of years. He has not had any issues until this week. The last 2 days he has had chest burning sensation at rest. He took nitroglycerin yesterday for the 1st time that he can remember and it relieved his discomfort. It happened again today while he was driving. It is nonradiating he denies any nausea or vomiting is not associated with food, does not have any shortness of breath. He took nitroglycerin again it took a lot longer for it to resolve but it did finally resolve. I have reviewed EKGs myself they remain unchanged. He has 2- troponins however patient has a history of hyperlipidemia hypertension and high with worsening symptoms. He does have an appoint with cardiology but he is not sure if it is this week or next week. Discussion with Dr. Draper Cardiology who recommended a stress test. [facility] does not have beds. Other hospital stay he is not critical enough to transfer. Our hospital currently does not have any beds available [facility] accepts patient Discharge Plan Departure Patient Disposition: Admitted as Observation Clinical Impression: Chest pain Admit Date/Time: 12/12/21 01:07 Admit Provider: Farrah Carcamo ED Sign-out <Zac Walter PA-C - Last Filed: 12/11/21 19:54> Sign Out Provider Sign Out Attestation: Report given to Dr. Drake neck and she will assume further treatment and care for this patient.
[2021-12-11 18:06] LABS: Appearance Urine UA CLEAR; Bilirubin Urine UA NEGATIVE (NEGATIVE); Color Urine UA YELLOW; Glucose Urine UA NEGATIVE (Negative); Ketones Urine UA NEGATIVE (NEGATIVE); Leukocyte Esterase Urine UA NEGATIVE (NEGATIVE); Nitrite Urine UA NEGATIVE (Negative); Occult Blood Urine UA NEGATIVE (Negative); Protein Urine UA NEGATIVE (Negative); Specific Gravity Urine UA <=1.005 (1.000-1.035); Urobilinogen Urine UA 0.2 E.U./dL (0.2); pH Urine UA 6.5 (4.5-8.0)
[2021-12-11 18:21] LABS: Bacteria Urine None Seen; Culture Indicated Urine Cult Not Indicated; RBC Urine None Seen (0-5/HPF); Squamous Epithelial Cell Urine 0-1 /HPF (0-5/HPF); WBC Urine None Seen (0-5/HPF)
--- NOTE | 2021-12-11 20:05 | PC.NURSE ---
pt resting quietly on stretcher denies any c/p or discomfort at this time
[2021-12-11 20:23] LABS: Creatine Kinase 80 U/L (55-170)
[2021-12-11 20:36] LABS: Troponin I < 0.012 ng/mL (0.01-0.034)
[2021-12-11] MEDS: ASPIRIN 81 MG CHEW TAB 324 MG PO (22:10)
--- NOTE | 2021-12-11 23:19 | PC.NURSE ---
no change in pt's condition, pt playing solitaire on phone
[2021-12-11 23:29] LABS: COVID19 -Nasal RAPID Negative (Negative)
[2021-12-12] VITALS (38 sets, daily range): BP systolic 97–131; BP diastolic 54–79; PULSE 52–87; RESP 9–29; O2SAT 81–97
--- NOTE | 2021-12-12 | DI.ECHO.S_ITS ---
[facility]---------+ [facility] +---------+ : : [address] : : : : [id number] : : : : Phone: [phone] Echocardiogram Report + + :Name: JOSUE MCCOY Study Date: 12/12/2021 Height: 72 in : :[facility] ReadingLocation: Weight: 195 lb: : Gender: Male BSA: 2.1 m2 : :: 1960 Age: 61 yrs BP: 97/54 mmHg: :Reason For Study: CHEST PAIN : :Ordering Physician: DHRUV VEGA Performed By: Rula Ledezma : :Referring: DHRUV VEGA : + + Interpretation Summary Normal echo study. Procedure: A two-dimensional transthoracic echocardiogram with color flow and Doppler was performed. The study quality was technically adequate. The patient was in sinus bradycardia with heart rates between 53-60 bpm during the exam. Left Ventricle: The left ventricle is normal in size and wall thickness. The ejection fraction is estimated to be 60-65%. There are no focal wall motion abnormalities. Right Ventricle: The right ventricle is normal in size and function. Atria: The left atrial size is normal. Right atrial size is normal. There is no Doppler evidence for an interatrial shunt. Mitral Valve: The mitral valve is normal in structure and function. There is trace mitral regurgitation. Aortic Valve: The aortic valve is trileaflet. The aortic valve opens well. There is no aortic valve stenosis. No aortic regurgitation is present. Tricuspid Valve: The tricuspid valve is normal in structure and function. There is trace tricuspid regurgitation. Pulmonic Valve: The pulmonic valve is not well seen, but is grossly normal. There is no pulmonic valvular regurgitation. Great Vessels: The aortic root is normal size. The dimensions of the ascending aorta are normal. The IVC is of normal diameter and collapses greater than 50% with a sniff. This suggests a low right atrial pressure of 3 mm Hg. Pericardium/ Pleura There is no pericardial effusion. There is no pleural effusion. MMode/2D Measurements & Calculations LVIDd: 5.4 cm LVOT diam: 2.5 cm LVIDs: 3.9 cm Ao root diam: 3.8 cm FS: 27.1 % asc Aorta Diam: 3.1 cm IVSd: 0.74 cm Ao Arch Diam (Prox Trans): 2.9 cm LVPWd: 0.70 cm LV licea. diameter/BSA (cm/m^2): 2.6 LV sys. diameter/BSA (cm/m^2): 1.9 LA A2 area: 18.1 cm2 RA long axis: 4.7 cm LA A4 area: 15.7 cm2 RA area: 12.1 cm2 LA length (vol): 4.8 cm RA vol: 26.3 ml LA vol: 50.7 ml RA : 12.5 ml/m2 LA vol index: 24.1 ml/m2 IVC diam: 1.2 cm RVD1 (basal): 3.4 cm RVD2 (mid): 3.0 cm TAPSE: 2.1 cm Doppler Measurements & Calculations Ao V2 max: 83.8 cm/sec LVOT Max Primitivo: 71.4 cm/sec Ao V2 mean: 60.7 cm/sec LV V1 max P.0 mmHg Ao max P.8 mmHg LV V1 VTI: 17.9 cm Ao mean P.6 mmHg KARI(I,D): 4.2 cm2 Ao V2 VTI: 20.8 cm KARI(V,D): 4.1 cm2 sev ratio: 0.86 KARI indexed to BSA (cm^2/m^2): 2.0 MV E max primitivo: 41.1 cm/sec PA V2 max: 103.3 cm/sec MV A max primitivo: 63.8 cm/sec PA V2 mean: 71.0 cm/sec MV E/A: 0.64 PA mean P.3 mmHg Med Peak E' Primitivo: 6.7 cm/sec PA pr(Accel): 13.9 mmHg E/E' med: 6.1 Lat Peak E' Primitivo: 8.3 cm/sec E/E' lat: 4.9 E/e' average: 5.5 MV dec time: 0.51 sec SV(LVOT): 87.1 ml Electronically signed by: Gerson Da Silva on Reading Physician:12/12/2021 10:59 AM
--- NOTE | 2021-12-12 00:14 | PC.NURSE ---
no change in condition
--- NOTE | 2021-12-12 02:00 | PC.NURSE ---
no change in condition, pt resting with eyes closed
--- NOTE | 2021-12-12 04:00 | PC.NURSE ---
pt resting quietly resp even and unlabored
--- NOTE | 2021-12-12 06:00 | PC.NURSE ---
no change in condition
[2021-12-12 07:17] LABS: Add Manual Diff / Slide Review NO; Basophils Absolute Auto 100 /uL (0-100); Basophils Percent Auto 1.9 % (0-2); Eosinophils Absolute Auto 600 /uL (0-450); Hemoglobin 14.8 g/dL (13.5-17.5); Lymphocytes Absolute Auto 2400 /uL (1100-4500); Lymphocytes Percent Auto 35.3 % (25-40); Mean Corpuscular HGB Conc 33.7 % (30-36); Mean Corpuscular Hemoglobin 31.6 PG (26-34); Mean Corpuscular Volume 93.6 fL (80-100); Monocytes Absolute Auto 600 /uL (0-900); Monocytes Percent Auto 8.5 % (3-14); Neutrophils Absolute Auto 3100 /uL (1500-7000); Neutrophils Percent Auto 45.3 % (50-75); Platelet Count 227 X10^3/uL (150-400); Red Cell Distribution Width 12.3 % (11.6-14.8); White Blood Cell Count 6.8 X10^3/uL (4.5-11.0)
[2021-12-12 07:28] LABS: Blood Urea Nitrogen 12 mg/dL (9-20); Calcium 9.3 mg/dL (8.4-10.2); Carbon Dioxide 29 mmol/L (22-32); Chloride 107 mmol/L (98-107); Cholesterol 148 mg/dL (140-199); Estimated Glomerular Filt Rate > 60.0 mL/min (>60); Glucose 105 mg/dL (80-110); HDL Cholesterol 38 mg/dL (40-60); HEMOLYSIS < 15 (0-50); LDL Cholesterol Calculated 79 mg/dL (<100); Magnesium 2.2 mg/dL (1.6-2.3); Sodium 140 mmol/L (137-145); Triglycerides 157 mg/dL (35-150)
[2021-12-12 07:38] LABS: Troponin I < 0.012 ng/mL (0.01-0.034)
--- NOTE | 2021-12-12 10:04 | PM.HP.1 ---
History of Present Illness History of Present Illness Date Patient Seen: 12/12/21 Time Patient Seen: 08:00 Chief complaint: CHEST PAIN Narrative: Mr. Mcnamara is a 61M with PMH CAD s/p NC, HTN, HL, former smoker who presents with chest pain. He states he was driving his car and he developed burning substernal chest pain. He thinks he may have had some shortness of breath, but isn't certain. No coughing, fevers/chills. No abdominal pain, nausea, vomiting. Last time he had an NC he had nausea and diaphoresis, which are not present this admission. He has not had a stress test within the last couple years. He did take nitro which did not alleviate his pain. In the ED workup was done vitals notable for mild bradycardia, and elevated blood pressure. Labs notable for WBC 6.9, hgb 14.6, plts 228. Na 139, creatinine 0.9. UA negative. Troponin negative x3. He was given aspirin and admitted for further evaluation. PMH: CAD, HTN, HL Family history: Father and grandfather with CAD Social history: former smoker, quit in 2018 Patient History Family & Social History Safety & Behavioral: Feels Safe in Current Yes Environment Been Physically Hurt or No Threatened By a Person Tobacco & Substance use: Smoking Status Former smoker alcohol intake frequency a few times a week Substance Use Type does not use Meds Home Medications and Allergies Home Medications Medication Instructions Recorded Confirmed Type amoxicillin 875 mg-potassium 1 tab PO BID #20 tab 10/14/19 Rx clavulanate 125 mg tablet atorvastatin 40 mg tablet 40 mg PO DAILY 10/14/19 10/14/19 History meclizine 25 mg tablet 25 mg PO TID PRN #20 tab 10/14/19 Rx metoprolol tartrate 50 mg tablet 50 mg PO BID 10/14/19 10/14/19 History nitroglycerin 0.4 mg sublingual 0.4 mg SUBLINGUAL PRN PRN 10/14/19 10/14/19 History tablet (Nitrostat) ranitidine HCl 150 mg tablet 150 mg PO BID 10/14/19 History Allergies Allergy/AdvReac Type Severity Reaction Status Date / Time No Known Drug Allergies Allergy Verified 10/14/19 14:04 Review of Systems Review of Systems Narrative: 14 systems reviewed and negative aside from what is noted in HPI Exam Vital Signs (past 8 hours): - 12/12/21 02:30 12/12/21 03:00 12/12/21 03:30 Pulse Rate 52 L 57 L 57 L Respiratory Rate 12 14 14 Blood Pressure Pulse Oximetry 93 94 92 12/12/21 04:00 12/12/21 04:30 12/12/21 05:00 Pulse Rate 61 58 L 61 Respiratory Rate 14 14 13 Blood Pressure 97/54 L Pulse Oximetry 92 92 92 12/12/21 05:30 12/12/21 06:00 12/12/21 06:30 Pulse Rate 60 60 57 L Respiratory Rate 15 13 14 Blood Pressure Pulse Oximetry 91 94 93 12/12/21 07:00 Pulse Rate 56 L Respiratory Rate 11 L Blood Pressure Pulse Oximetry 92 Oxygen Delivery Method Room Air Narrative Exam Narrative: GEN: no acute distress HEENT: moist mucous membranes, PERRL JVD: trachea midline, no JVD CV: regular rate and rhythm, no murmurs PULM: clear bilaterally ABD: soft, nontender, nondistended, no organomegaly, normal bowel sounds EXT: warm and well perfused with no edema NEURO: no focal deficits Objective Labs Result Diagrams: 12/12/21 06:55 12/12/21 06:55 Labs: Laboratory Results - last 24 hr 12/11/21 12/11/21 12/11/21 16:49 16:49 17:59 WBC 6.9 RBC 4.54 Hgb 14.6 Hct 42.2 MCV 92.9 MCH 32.1 MCHC 34.6 RDW 12.2 Plt Count 228 Neut % (Auto) 30.1 L Lymph % (Auto) 48.5 H [place] % (Auto) 9.5 Eos % (Auto) 9.3 H Baso % (Auto) 2.6 H Neut # (Auto) 2100 Lymph # (Auto) 3300 [place] # (Auto) 700 Eos # (Auto) 600 H Baso # (Auto) 200 H Sodium 139 Potassium 4.0 Chloride 105 Carbon Dioxide 29 BUN 15 Creatinine 0.90 Estimated GFR > 60.0 BUN/Creatinine Ratio 16.7 Glucose 97 Calcium 9.3 Magnesium 2.0 Total Bilirubin 0.7 AST 47 ALT 60 H Alkaline Phosphatase 60 Total Creatine Kinase 83 CK-MB (CK-2) TNP CK-MB (CK-2) Rel Index TNP Troponin I < 0.012 Total Protein 7.4 Albumin 4.2 Globulin 3.2 Albumin/Globulin Ratio 1.3 Triglycerides Cholesterol LDL Cholesterol, Calc HDL Cholesterol Lipase 76 Urine Color Yellow Urine Appearance Clear Urine pH 6.5 Ur Specific [place] <=1.005 Urine Protein Negative Urine Glucose (UA) Negative Urine Ketones Negative Urine Occult Blood Negative Urine Nitrate Negative Urine Bilirubin Negative Urine Urobilinogen 0.2 Ur Leukocyte Esterase Negative Urine RBC None seen Urine WBC None seen Ur Squamous Epith Cells 0-1 /hpf Urine Bacteria None seen Ur Culture Indicated? Cult not indicated SARS-CoV-2 (PCR) 12/11/21 12/11/21 12/12/21 20:02 23:10 06:55 WBC RBC Hgb Hct MCV MCH MCHC RDW Plt Count Neut % (Auto) Lymph % (Auto) [place] % (Auto) Eos % (Auto) Baso % (Auto) Neut # (Auto) Lymph # (Auto) [place] # (Auto) Eos # (Auto) Baso # (Auto) Sodium Potassium Chloride Carbon Dioxide BUN Creatinine Estimated GFR BUN/Creatinine Ratio Glucose Calcium Magnesium Total Bilirubin AST ALT Alkaline Phosphatase Total Creatine Kinase 80 CK-MB (CK-2) TNP CK-MB (CK-2) Rel Index TNP Troponin I < 0.012 < 0.012 Total Protein Albumin Globulin Albumin/Globulin Ratio Triglycerides Cholesterol LDL Cholesterol, Calc HDL Cholesterol Lipase Urine Color Urine Appearance Urine pH Ur Specific [place] Urine Protein Urine Glucose (UA) Urine Ketones Urine Occult Blood Urine Nitrate Urine Bilirubin Urine Urobilinogen Ur Leukocyte Esterase Urine RBC Urine WBC Ur Squamous Epith Cells Urine Bacteria Ur Culture Indicated? SARS-CoV-2 (PCR) Negative 12/12/21 12/12/21 06:55 06:55 WBC 6.8 RBC 4.70 Hgb 14.8 Hct 44.0 MCV 93.6 MCH 31.6 MCHC 33.7 RDW 12.3 Plt Count 227 Neut % (Auto) 45.3 L Lymph % (Auto) 35.3 [place] % (Auto) 8.5 Eos % (Auto) 9.0 H Baso % (Auto) 1.9 Neut # (Auto) 3100 Lymph # (Auto) 2400 [place] # (Auto) 600 Eos # (Auto) 600 H Baso # (Auto) 100 Sodium 140 Potassium 4.0 Chloride 107 Carbon Dioxide 29 BUN 12 Creatinine 0.86 Estimated GFR > 60.0 BUN/Creatinine Ratio 14.0 Glucose 105 Calcium 9.3 Magnesium 2.2 Total Bilirubin AST ALT Alkaline Phosphatase Total Creatine Kinase CK-MB (CK-2) CK-MB (CK-2) Rel Index Troponin I Total Protein Albumin Globulin Albumin/Globulin Ratio Triglycerides 157 H Cholesterol 148 LDL Cholesterol, Calc 79 HDL Cholesterol 38 L Lipase Urine Color Urine Appearance Urine pH Ur Specific [place] Urine Protein Urine Glucose (UA) Urine Ketones Urine Occult Blood Urine Nitrate Urine Bilirubin Urine Urobilinogen Ur Leukocyte Esterase Urine RBC Urine WBC Ur Squamous Epith Cells Urine Bacteria Ur Culture Indicated? SARS-CoV-2 (PCR) Assessment & Plan Assessment & Plan narrative: Mr. Mcnamara is a 61M with PMH CAD, HTN, HL who presents with chest pain. 1. Acute chest pain -think less likely to be cardiac, not relieved with nitro, started at rest -EKG with no acute ischemia -troponin negative x3 -however given history of NC, will workup with stress test and ECHO -continue aspirin, statin -hold metoprolol for now, patient sinus floirnda, and will do stress test today 2. Hypertension -hold metoprolol 3. Hyperlipiemia -continue statin CODE: Full Proxy: Shantal Mcnamara, spouse I have utilized all available resources to reconcile the patient's home medications. Time Spent With Patient Critical Care time: I spent a total of [] minutes of critical care time on this patient's care today; this time is exclusive of procedural time. Quality MIPS - Admit I confirm the patient?s Advance Care Plan is present, Code status is documented, Surrogate decision maker is in patient?s record [If Yes, STOP here]: Yes
[2021-12-12] MEDS: ATORVASTATIN 20 MG TABLET 40 MG PO (10:10)
[2021-12-12] MEDS: ENOXAPARIN 40 MG/0.4 ML SYRINGE SUBCUT (10:10)
[2021-12-12] MEDS: ASPIRIN EC 81 MG TABLET PO (10:10)
--- NOTE | 2021-12-12 13:26 | PM.TREADMILL ---
Cardiac Stress Test Report Referral & Results Indication: chest pain Rest ECG: sinus rhythm Procedure Note: NM treadmill Impression: standard keith protocol 8:40, 10.1 METS, FAIR EXERCISE CAPCITY, HIEU 0%, MAX HR 164, 102% OF MAX HR ACHIEVED. NORMAL HEMODYNAMIC RESPONSE TO EXERCISE. PATIENT HAD 2/10 CHEST PRESSURE IMMEDIATLY AFTER RECOVERY WHICH RESOLVED 1 MINUTE LATER IN RECOVERY. RESTING ECG SINUS RHYTHM. NO SIGNIFICANT ST CHANGES ON ECG DURING OR AFTER EXERCISE. RARE TRIPLET PVCS NOTED DURING EXERCISE. HAD MODERATE SOB. MIBI SCAN PENDING, LANDSCAPE LABORER TO REVIEW. MATTHEW VARNER Please note: Actual ECG tracings can be found in the PACS system.
--- NOTE | 2021-12-12 13:57 | PC.NURSE ---
Pt left for stress test around 1230. Pt just returned from test and is back in room.
--- NOTE | 2021-12-12 17:50 | PM.DS.1 ---
History of Present Illness History of Present Illness Date Patient Seen: 12/12/21 Time Patient Seen: 17:50 Chief complaint: CHEST PAIN Narrative: Per Dr. Melvin, Mr. Mcnamara is a 61M with PMH CAD s/p FL, HTN, HL, former smoker who presents with chest pain. He states he was driving his car and he developed burning substernal chest pain. He thinks he may have had some shortness of breath, but isn't certain. No coughing, fevers/chills. No abdominal pain, nausea, vomiting. Last time he had an FL he had nausea and diaphoresis, which are not present this admission. He has not had a stress test within the last couple years. He did take nitro which did not alleviate his pain. In the ED workup was done vitals notable for mild bradycardia, and elevated blood pressure. Labs notable for WBC 6.9, hgb 14.6, plts 228. Na 139, creatinine 0.9. UA negative. Troponin negative x3. He was given aspirin and admitted for further evaluation. PMH: CAD, HTN, HL Family history: Father and grandfather with CAD Social history: former smoker, quit in 2018 Discharge Providers Provider Date of admission: 12/12/21 01:07 Discharge Date: 12/12/21 Primary care physician: Bartolome Rosenthal PA-C Consults: 12/12/21 02:12 Consult to Cardiology Routine Comment: Consulting Provider: Yeny Draper Reason for consultation: chest pain, used to see Dr. Draper Has provider been notified: No Discharge provider: Tae Bush DO Summary Hospital Course Discharge Diagnosis: 1. Acute chest pain, probable GERD 2. Hypertension 3. Hyperlipiemia 4. History of CAD Hospital Course: This is a 61-year-old male with a past medical history of hypertension, hyperlipidemia, and CAD who presented with a burning like chest discomfort. Given his history of CAD and risk factors he was admitted for stress testing. Troponins were unremarkable and there was no evidence of acute ischemia on EKGs. Echocardiogram showed a normal ejection fraction with no significant wall motion abnormalities or valvular disease, and stress testing was determined to be low risk. He was discharged after stress test results return. 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 Exam Vital Signs (past 8 hours): - 12/12/21 10:09 12/12/21 10:16 12/12/21 10:30 Pulse Rate 71 61 62 Respiratory Rate 21 12 Blood Pressure 131/67 Pulse Oximetry 81 L 96 97 12/12/21 11:00 12/12/21 11:30 12/12/21 11:42 Pulse Rate 58 L 63 64 Respiratory Rate 14 17 24 Blood Pressure 110/66 Pulse Oximetry 94 95 96 12/12/21 12:00 12/12/21 12:30 12/12/21 14:04 Pulse Rate 64 64 84 Respiratory Rate 14 12 Blood Pressure Pulse Oximetry 94 96 95 12/12/21 14:05 12/12/21 14:30 12/12/21 15:00 Pulse Rate 82 80 72 Respiratory Rate 16 15 13 Blood Pressure 116/79 Pulse Oximetry 95 93 95 12/12/21 15:30 12/12/21 15:35 12/12/21 16:00 Pulse Rate 71 73 68 Respiratory Rate 13 14 10 L Blood Pressure 118/71 109/67 Pulse Oximetry 94 93 94 12/12/21 16:30 12/12/21 17:00 12/12/21 17:30 Pulse Rate 70 70 87 Respiratory Rate 9 L 9 L 29 H Blood Pressure Pulse Oximetry 93 96 95 12/12/21 17:47 Pulse Rate 79 Respiratory Rate 17 Blood Pressure 115/78 Pulse Oximetry 96 Oxygen Delivery Method Room Air Narrative Exam Narrative: GEN: no acute distress CV: regular rate and rhythm, no murmurs PULM: clear bilaterally EXT: warm and well perfused with no edema NEURO: no focal deficits Objective Labs Result Diagrams: 12/12/21 06:55 12/12/21 06:55 Labs: Laboratory Results - last 24 hr 12/11/21 12/11/21 12/11/21 17:59 20:02 23:10 WBC RBC Hgb Hct MCV MCH MCHC RDW Plt Count Neut % (Auto) Lymph % (Auto) [place] % (Auto) Eos % (Auto) Baso % (Auto) Neut # (Auto) Lymph # (Auto) [place] # (Auto) Eos # (Auto) Baso # (Auto) Sodium Potassium Chloride Carbon Dioxide BUN Creatinine Estimated GFR BUN/Creatinine Ratio Glucose Calcium Magnesium Total Creatine Kinase 80 CK-MB (CK-2) TNP CK-MB (CK-2) Rel Index TNP Troponin I < 0.012 Triglycerides Cholesterol LDL Cholesterol, Calc HDL Cholesterol Urine Color Yellow Urine Appearance Clear Urine pH 6.5 Ur Specific [place] <=1.005 Urine Protein Negative Urine Glucose (UA) Negative Urine Ketones Negative Urine Occult Blood Negative Urine Nitrate Negative Urine Bilirubin Negative Urine Urobilinogen 0.2 Ur Leukocyte Esterase Negative Urine RBC None seen Urine WBC None seen Ur Squamous Epith Cells 0-1 /hpf Urine Bacteria None seen Ur Culture Indicated? Cult not indicated SARS-CoV-2 (PCR) Negative 12/12/21 12/12/21 12/12/21 06:55 06:55 06:55 WBC 6.8 RBC 4.70 Hgb 14.8 Hct 44.0 MCV 93.6 MCH 31.6 MCHC 33.7 RDW 12.3 Plt Count 227 Neut % (Auto) 45.3 L Lymph % (Auto) 35.3 [place] % (Auto) 8.5 Eos % (Auto) 9.0 H Baso % (Auto) 1.9 Neut # (Auto) 3100 Lymph # (Auto) 2400 [place] # (Auto) 600 Eos # (Auto) 600 H Baso # (Auto) 100 Sodium 140 Potassium 4.0 Chloride 107 Carbon Dioxide 29 BUN 12 Creatinine 0.86 Estimated GFR > 60.0 BUN/Creatinine Ratio 14.0 Glucose 105 Calcium 9.3 Magnesium 2.2 Total Creatine Kinase CK-MB (CK-2) CK-MB (CK-2) Rel Index Troponin I < 0.012 Triglycerides 157 H Cholesterol 148 LDL Cholesterol, Calc 79 HDL Cholesterol 38 L Urine Color Urine Appearance Urine pH Ur Specific [place] Urine Protein Urine Glucose (UA) Urine Ketones Urine Occult Blood Urine Nitrate Urine Bilirubin Urine Urobilinogen Ur Leukocyte Esterase Urine RBC Urine WBC Ur Squamous Epith Cells Urine Bacteria Ur Culture Indicated? SARS-CoV-2 (PCR) [facility] Social History Smoking Status: Former smoker Discharge Plan Discharge Plan Patient Disposition: Home Provider Discharge Comment: Mr. Mcnamara came in to the hospital with chest pain. His workup was reassuring and he had no heart attack. Discharge orders & Medications Prescriptions: Continued atorvastatin 40 mg tablet 40 mg PO DAILY 0RF ranitidine HCl 150 mg tablet 150 mg PO BID 0RF metoprolol tartrate 50 mg tablet 50 mg PO BID 0RF nitroglycerin [Nitrostat] 0.4 mg tablet, sublingual 0.4 mg sublingual PRN PRN (Reason: Chest Pain) 0RF amoxicillin-pot clavulanate 875-125 mg tablet 1 tab PO BID Qty: 20 0RF meclizine 25 mg tablet 25 mg PO TID PRN (Reason: dizziness) Qty: 20 0RF Follow up/Referrals: Bartolome Rosenthal PA-C [Primary Care Provider] - Diet/Activity/Treatments Diet: Diet as Tolerated Activity: As tolerated Visit Report/Discharge Packet Instructions: DI for Chest Pain Discharge Data Primary Care Provider: Bartolome Rosenthal Attending Provider: Farrah Carcamo
--- NOTE | 2021-12-12 19:30 | DI.NM.S_ITS ---
DATE OF SERVICE: 12/12/2021 PROCEDURE: Exercise perfusion study. INDICATION: Known history of CAD, hypertension and chest pain. RADIOPHARMACEUTICAL: 26.0 millicurie technetium-99m Myoview IV was injected at stress and 12.2 millicurie technetium-99m Myoview IV was injected at rest. CARDIAC STRESS: The patient underwent exercise perfusion study under the supervision of an attending staff. The patient walked on Rigoberto protocol for 8 minutes and 40 seconds, achieved maximum heart rate of 164, which was 102 percent of target heart rate. The patient achieved 10.1 METs of workload. HIEU is 0 percent. Baseline rhythm was sinus. The patient also had left axis. During stress, no convincing ischemic changes seen. Baseline blood pressure 122/72 and maximum blood pressure 150/82. During stress, the patient has one 3- beat run of ventricular triplet. No sustained ventricular tachycardia or atrial fibrillation seen. In the immediate recovery, the patient has mild chest discomfort, which only lasted for 2 minutes. RAW DATA: There is increased subdiaphragmatic activity and hot spot near the inferior border of the heart. Gated study resting LV ejection fraction 69 percent and stress LV ejection fraction 77 percent. No obvious wall motion abnormalities. Resting end-diastolic volume 121 mL. TID ratio 0.55, which is within normal limits. Lung/heart ratio 0.17, which is within normal limits. MYOCARDIAL PERFUSION SCAN: Stress supine, resting supine and stress prone images were compared to each other. Stress supine images revealed a small to moderate size, mildly decreased perfusion of base to mid inferior wall. During resting supine, there was small to moderate size, mildly decreased perfusion of inferior wall, as well as apex. During stress prone, base to mid inferior wall defect got completely resolved. There was a mild distal inferolateral defect, which was not seen during stress supine. No obvious reversible ischemia. CONCLUSION: I will call this study likely a normal myocardial perfusion study with evidence of diaphragmatic tissue attenuation artifact, which got resolved during prone images. There was shifting tissue attenuation artifact seen, as well. No convincing ischemia or infarction pattern. Fair exercise tolerance. No obvious ischemic changes. Brief chest discomfort in recovery. One ventricular triplet without any sustained ventricular tachycardia. Preserved left ventricular function. Overall, this is a low-risk myocardial perfusion scan. The patient had a perfusion study in September,, at that time, he was able to walk for 12 minutes. No significant reversible ischemia at that time. There was minimally decreased perfusion of apex with improvement of inferior wall defect on prone images. Derick Mcnamara - SANJEEV/seferino/idris doc#: [id number]/job#: [id number] dd: 12/12/2021 17:49:00 dt: 12/12/2021 18:43:00 DICTATING MD/COPIES TO: Milton Dang MD COPIES MNE: JUANCARLOS;
== END 2021-12-13 03:38 | disposition home or self-care (01) ==
LOC: ED 12-12 01:06 → AC 12-12 01:07
PROVIDERS: Emergency Medicine; Physician Assistant; Admitting Provider Nurse Practitioner Family; Emergency Provider Emergency Medicine; Family Provider Physician Assistant; PCP Physician Assistant; Referring Provider Emergency Medicine; Visit Provider Nurse Practitioner Family
DX: R07.9 Chest pain, unspecified (principal); I10 Essential (primary) hypertension; E78.5 Hyperlipidemia, unspecified; I25.10 Atherosclerotic heart disease of native coronary artery without angina pectoris; Z87.891 Personal history of nicotine dependence; I25.2 Old myocardial infarction; Z20.822 Contact with and (suspected) exposure to COVID-19
CPT/HCPCS: 36415; 71045; 78452; 80048; 80053; 80061; 81001; 82550; 83690; 83735; 84484; 85025; 87635; 93005; 93017; 93306; 96372; 99284; C9803; G0378; A9502; J1650

== ENCOUNTER 2022-01-30 09:30 | Outpatient (RCR) | payer OTHER, SELFPAY ==
--- NOTE | 2021-11-14 16:14 | ST.OPIE ---
Visit Care Team Role Provider Type Bartolome Rosenthal PA-C Family Provider Non-Staff Primary Care Provider Specialty: Medical Address: [address] [place] [address], [id number] Phone: Email: Greg Solorzano MD Attending Provider Physician Referring Provider Specialty: Ear, Nose, Throat Address: [address] [place] [address], [id number] Email: [email or web address] Speech-Language Pathology Initial Evaluation HOME CARE PROVIDER Clinical Swallow Evaluation Start: 11/14/21 15:55 Freq: Status: Active Protocol: Document 11/14/21 15:55 NIA (Rec: 11/14/21 16:13 NIA [email or web address]) Clinical Swallow Evaluation Session Time Visit Start Time 08:30 Visit Stop Time 09:30 Total Visit Minutes 60 Visit Information Visit Number Initial Evaluation Plan of Care Dates 11/14/21 - 02/12/[address] [facility] Referral Referring Provider Dr. Solorzano Reason for Referral Dysphagia Setting Assessment Location Outpatient Care Visit Type Note Type Initial evaluation Next Note Type Next Note Type Treatment Note Patient Information Identification Type Name,ID Card History The pt is a 60-yr-old male who was seen by this clinician for Modified Barium Swallow Study. At that time, he c/o sticking sensation at mid to upper level of throat with items such as pills, dry, and sticky textures. Pt stated, They are at the place where they're about to go down the wrong way. These often require extensive swallows of liquid to clear. He denies difficulty with liquids. MBSS revealed mild pharyngeal dysphagia secondary to mild weakness of musculature resulting in moderate vallecular residue and reduced extension and duration of UES opening, causing minimal residue at pyriform sinuses and proximal esophagus. Dysphagia treatment was recommended. Subjective Observations The pt arrived on time and reported no changes in swallow since MBSS. Reported by Patient Other Symptoms Difficulty swallowing pills, Difficulty swallowing solids, Food gets stuck Current Diet Regular,Thin liquids Baseline Feeding Method Independent in self-feeding Patient Questionnaire No Objective Assessment Mental Status Alert,Responsive,Cooperative Oral Integrity WFL Dentition Within normal limits Lip Function Within normal limits Observation of Lips at Rest Symmetrical Pucker Within normal limits Lip Retraction Within normal limits Alternating Pucker/Lip Retraction Within normal limits Tongue Function Within normal limits Observations of Tongue at Rest Within normal limits Tongue Protrusion Within normal limits Tongue Retraction Within normal limits Tongue Lateralization Within normal limits Observations of Jaw at Rest Within normal limits Jaw Opening Within normal limits Jaw Closing Within normal limits Jaw Lateralization Within normal limits Hard/Soft Palate Function Within normal limits Observations of Hard/Soft Palate Within normal limits Gag Reflex Within normal limits Nasality Within normal limits Phonation Within normal limits Respiratory Sufficiency Within normal limits Food and Liquid Trials Comment Oral trials were not administered today. MBSS serves as initial evaluation of swallow function and safety . Today the pt was educated of MBSS results with video review, including animated video of normal swallow function for comparison to his swallow function. Trained pt in swallow exercises targeting increasing pharyngeal stripping wave and increased UES extension and duration of opening via increased anterior movement of hyolaryngeal unit. The pt performed all exercises as instructed and verbalized understanding. Instructions were provided orally with demonstration and in writing for home practice. Agreed to follow up in 3 wks. Will decide over course of treatment if a follow-up MBS is warranted. Findings Swallowing Function Pharyngeal phase dysphagia Severity of Swallow Impairment Mildly impaired Contributing Factors to Swallow Reduced laryngeal excursion, Impairment Excessive pharyngeal residue Prognosis Good Based on Cognitive status,Age,Duration of symptoms/severity Impact on Safety and Functioning Risk for aspiration Comments Mild risk for aspiration; Significant discomfort with oral intake Recommendations Instrumental Assessment No Swallowing Treatment Yes Frequency Up to 5 visits Duration across 3 mos Recommended Solids Regular Recommended Liquids Thin Other Recommendations Avoid sticky and dry foods; add moisture Safety Precautions/Swallowing Small bites and sips when Recommendations eating,Multiple swallows, Alternate liquids and solids Medication Recommendations As Tolerated Education Patient/Caregiver Education Described results of evaluation,Patient expressed understanding of evaluation, Patient expressed agreement with goals & treatment plans, Patient expressed understanding of safety precautions,Patient expressed understanding of feeding recommendations Goals Short-term Goals 1. The pt will perform exercises to increase strength , coordination and ROM of swallow musculature to reduce pharyngeal residue, increase comfort with oral intake and reduce risk of aspiration. 2. The pt will follow safe swallow recommendations for same purpose. Long-term Goals 1. The pt will tolerate regular diet, thin liquids and meds whole without overt s/sx of aspiration, and comfort of oral intake WNL.
--- NOTE | 2021-12-05 11:41 | ST.IPDYTX ---
Visit Care Team Role Provider Type Bartolome Rosenthal PA-C Family Provider Non-Staff Primary Care Provider Specialty: Medical Address: [address] [place] [address], [address] Phone: Email: Greg Solorzano MD Attending Provider Physician Referring Provider Specialty: Ear, Nose, Throat Address: [address] [place] [address], [id number] Email: [email or web address] Start: 11/14/21 15:55 Freq: Status: Active Protocol: Document 12/05/21 10:20 NIA (Rec: 12/05/21 10:21 NIA [email or web address]) Dysphagia Treatment Session Time Visit Start Time 09:30 Visit Stop Time 10:05 Total Visit Minutes 25 Visit Information Visit Number 2 Plan of Care Dates 11/14/21 - 02/12/22 Insurance Information [facility] Assessment Location Outpatient Care Visit Type Note Type Treatment Note Next Note Type Next Note Type Treatment Note Patient Information Subjective Observations Pt arrived on time. Reported some improvement with swallow . No coughing/choking episodes since last visit. Had sticking sensation with a piece of cooked carrot yesterday, which cleared with subsequent swallow, no need for liquid wash. Has been diligent with exercises with exception of CTAR, d/t neck and shoulder muscle pain following an accident with his horse about a week ago. Pt denied concussion or hitting head when knocked over by his startled horse. Treatment Liquids Trialed Thin Solids Trialed Mechanical Soft,Regular Administration Type Cup Single Sip,Cup Consecutive Sips,Self-Feeding Oral Strategies Upright at 90 degrees Pharyngeal Strategies Effortful Swallow Treatment Activities Pt consumed diced peaches with mild sticking sensation that cleared with subsequent dry swallow. Instructed pt during next bite to employ tongue press to hard palate and effortful swallow, which resulted in no sticking sensation. No other s/sx of dysphagia or aspiration were noted with other textures. Recommended pt discontinue CTAR exercises until neck and shoulder muscle pain has healed. Pt had questions related to upcoming sinus surgery and potential impact on swallow. All questions were answered to the best of this clinician's ability. Encouraged pt to be consistent with swallow exercises to promote highest level of swallow prior to surgery. Pt was in agreement. Assessment Patient Response to Treatment Good Rehab Potential Excellent Assessment of Improvement The pt is making good progress toward goals with no episodes of coughing or choking and reduced frequency and severity of sticking sensations with swallowing of solids. Diet Recommendations Recommendations Continue Current Diet Liquids Order Thin Diet Order Regular Medication Recommendations As Tolerated Aspiration Precautions Recommended Precautions Upright at 90 Degrees, Alternate Liquids/Solids,Small Bites/Sips,Effortful Swallow, Double Swallow Treatment Plan Appropriate for Continued Therapy Yes Dysphagia Goals 1. The pt will perform exercises to increase strength , coordination and ROM of swallow musculature to reduce pharyngeal residue, increase comfort with oral intake and reduce risk of aspiration. 2. The pt will follow safe swallow recommendations for same purpose. 3. The pt will tolerate regular diet, thin liquids and meds whole without overt s/sx of aspiration, and comfort of oral intake WNL. Follow Up Plan f/u in 4 wks
--- NOTE | 2022-01-02 10:19 | ST.IPDYTX ---
Visit Care Team Role Provider Type Bartolome Rosenthal PA-C Family Provider Non-Staff Primary Care Provider Specialty: Medical Address: [address] [place] [address], [id number] Phone: Email: Greg Solorzano MD Attending Provider Physician Referring Provider Specialty: Ear, Nose, Throat Address: [address] [place] [address], [id number] Email: [email or web address] ACQUISITION MARKETING MANAGER Dysphagia Treatment ACQUISITION MARKETING MANAGER Dysphagia Treatment Start: 11/14/21 15:55 Freq: Status: Active Protocol: Document 01/02/22 09:23 NIA (Rec: 01/02/22 09:26 NIA [id number]) Dysphagia Treatment Session Time Visit Start Time 09:30 Visit Stop Time 10:15 Total Visit Minutes 45 Visit Information Visit Number 3 Plan of Care Dates 11/14/21 - 02/12/22 Insurance Information [facility] Assessment Location Outpatient Care Visit Type Note Type Treatment Note Next Note Type Next Note Type Treatment Note Patient Information Subjective Observations Pt arrived on time. Since last session, he was hospitalized d/t chest pains (12/11/21 - ) but workup was unremarkable. Pt has family hx of GERD and has been on Omeprazole for 2-3 yrs. In hospital, his dose was doubled and he was discharged home. He reported improvement with swallow with only occasional sticking sensation with foods such as peanuts, requiring liquid wash to clear and difficulty swallowing large pills. He denied airway compromise with oral intake. He did report occasional changes in voice, such as pitch breaks and hoarseness. Treatment Liquids Trialed Thin Solids Trialed Regular Administration Type Cup Single Sip,Cup Consecutive Sips,Self-Feeding Oral Strategies Upright at 90 degrees Pharyngeal Strategies Sitting Upright (90 deg),Chin Tuck,Effortful Swallow Treatment Activities Pt educated on GERD/LPR symptoms, including potential impacts on voice, and precautions. Information was provided both orally and in writing. He identified lifestyle modifications he felt he could make to reduce symptoms. Education and recommendations were also provided RE large pill taking, including using a carrier, splitting or crushing meds with MD/ Pharmacist approval, and/or finding liquid forms of supplements, such as [place] 3. Pt consumed dry cracker and cracker with peanut butter, employing chin tuck. He reported increased ease with swallow. Liquid wash was required once and cleared pharyngeal residue immediately , which is an improvement over his normal need of extensive liquid wash to clear. Discussed POC and agreed to f/ u again in 4 wks. Pt committed to increasing exercise and trialing GERD/LPR precautions and chin tuck. Assessment Patient Response to Treatment Excellent Rehab Potential Excellent Assessment of Improvement The pt continues to make excellent progress toward goals. He was receptive to all education and training provided and benefited from chin tuck to promote pharyngeal clearance of complex textures. Minimal liquid wash was still needed in one trial. Diet Recommendations Recommendations Continue Current Diet Liquids Order Thin Diet Order Regular Medication Recommendations As Tolerated,Whole in Carrier Comments Recommend splitting large pills or finding liquid alternatives if possible Aspiration Precautions Recommended Precautions Upright at 90 Degrees, Alternate Liquids/Solids,Small Bites/Sips,Chin Tuck, Effortful Swallow,Double Swallow Treatment Plan Appropriate for Continued Therapy Yes Therapy Recommendations Follow up in 4 wks Dysphagia Goals 1. The pt will perform exercises to increase strength , coordination and ROM of swallow musculature to reduce pharyngeal residue, increase comfort with oral intake and reduce risk of aspiration. 2. The pt will follow safe swallow recommendations for same purpose. 3. The pt will tolerate regular diet, thin liquids and meds whole without overt s/sx of aspiration, and comfort of oral intake WNL. Follow Up Plan f/u in 4 wks
--- NOTE | 2022-01-30 10:28 | ST.IPDYTX ---
Visit Care Team Role Provider Type Bartolome Rosenthal PA-C Family Provider Non-Staff Primary Care Provider Specialty: Medical Address: [address] [place] [address], [address] Phone: Email: Greg Solorzano MD Attending Provider Physician Referring Provider Specialty: Ear, Nose, Throat Address: [address] [place] [address], [id number] Email: [email or web address] [employer] Dysphagia Treatment [employer] Dysphagia Treatment Start: 11/14/21 15:55 Freq: Status: Active Protocol: Document 01/30/22 09:36 NIA (Rec: 01/30/22 10:27 NIA [id number]) Dysphagia Treatment Session Time Visit Start Time 09:30 Visit Stop Time 10:15 Total Visit Minutes 45 Visit Information Visit Number 4 Plan of Care Dates 11/14/21 - 02/12/22 Insurance Information [facility] Assessment Location Outpatient Care Visit Type Note Type Discharge Summary Patient Information Subjective Observations Pt has been compliant with exercises. Almost back to normal. Occ problems with pills, peanuts. No problem with pills when chin tuck is used. Treatment Liquids Trialed Thin Solids Trialed Regular Administration Type Cup Single Sip,Cup Consecutive Sips,Self-Feeding Oral Strategies Upright at 90 degrees Additional Dysphagia Treatment Chin tuck as needed Strategies Treatment Activities Assessed swallow with dry cracker, peanut M&Ms and thin liquid. No overt s/sx of aspiration observed. Pt stated one bite of peanut went down slowly, but it did go down. He employed chin tuck with next bite with increased clearance and ease. Pt is avoiding fish oil capsules d/t size. Recommended flavored liquid versions, available at natural food stores and/or supplement departments of drug stores. Pt stated he's considering adding to smoothies, which this [employer]TER supported. Assessment Patient Response to Treatment Excellent Rehab Potential Excellent Assessment of Improvement The pt is near baseline, showing occasional minimal sticking sensation with pills if chin tuck is not used. Recommend he continues with swallow exercises. Anticipate continued improvement and good maintenance with continued exercise. Pt was in agreement. He will be discharged from skilled intervention at this time. Diet Recommendations Recommendations Continue Current Diet Liquids Order Thin Diet Order Regular Medication Recommendations As Tolerated Comments Chin tuck with pills Aspiration Precautions Recommended Precautions Upright at 90 Degrees Additional Precautions Chin tuck as needed, particularly with pills. Pills in carrier if helpful Treatment Plan Placement Recommendation after Discharge Home Appropriate for Continued Therapy No Therapy Recommendations Follow up in 4 wks Dysphagia Goals GOALS HAVE BEEN MET 1. The pt will perform exercises to increase strength , coordination and ROM of swallow musculature to reduce pharyngeal residue, increase comfort with oral intake and reduce risk of aspiration. 2. The pt will follow safe swallow recommendations for same purpose. 3. The pt will tolerate regular diet, thin liquids and meds whole without overt s/sx of aspiration, and comfort of oral intake WNL.
== END 2022-01-31 13:54 ==
LOC: SP 09:30
PROVIDERS: Family Provider Physician Assistant; PCP Physician Assistant; Referring Provider Otolaryngology; Visit Provider Otolaryngology
DX: R13.19 Other dysphagia (principal); J01.90 Acute sinusitis, unspecified
CPT/HCPCS: 92526; 92610

== ENCOUNTER → 2023-06-04 13:27 | Outpatient (CLI) | payer OTHER, SELFPAY ==
--- NOTE | 2023-06-04 | DI.MRI.S_ITS ---
PROCEDURE: MR KNEE LT WO CON INDICATIONS: CHRONIC LEFT KNEE PAIN TECHNIQUE: Noncontrast sagittal PD fast spin echo and T2 fast spin echo with fat saturation, sagittal 3-D FLASH with fat saturation; coronal T1 spin echo and PD fast spin echo with fat saturation, and axial PD fast spin echo with fat saturation through the knee. COMPARISON: None. FINDINGS: Image quality: Excellent. Menisci: Complex oblique tear involving posterior horn of medial meniscus is seen extending to inferior articulating surface. The lateral meniscus is intact. The meniscal root ligaments appear intact. Cruciate ligaments: The anterior and posterior cruciate ligaments appear intact. Medial structures: The medial collateral ligament appears thickened with adjacent soft tissue edema. The posterior oblique ligament, semimembranosus tendon insertions, oblique popliteal ligament, and meniscocapsular junction appear intact. Visualized portions of the pes anserinus tendons appear normal. No abnormal bursal fluid. Lateral structures: The lateral collateral ligament, long and short heads of the biceps femoris tendon appear intact. The popliteus tendon appears normal; the popliteofibular ligament appears intact. Iliotibial band appears normal. Anterior structures: The quadriceps tendon is intact. Diffusely thickened patellar tendon extending to its inferior patellar insertion is seen. Low-grade partial-thickness tear involving medial patellar femoral ligament at its patellar insertion is seen. Patellar alignment is normal. No femoral trochlear dysplasia or ventral trochlear prominence. No edema in the infrapatellar fat pad. Bones and cartilage: Marrow edema is noted involving medial aspect of patella near patellofemoral ligament insertion. Mild marrow edema is also noted involving medial periphery of proximal tibia extending to medial tibial plateau without discrete fracture line. Mild tricompartmental osteoarthritis and low-grade chondromalacia is seen most notably in medial femoral tibial compartment. Joint space: There is small knee joint fluid. There is a 2.5 x 1.7 x 4.7 cm Robles's cyst. Normal appearing synovial plicae are incidentally noted. IMPRESSION: 1. Complex oblique tear involving posterior horn of medial meniscus extending to inferior articulating surface. The lateral meniscus is intact. 2. The cruciate ligaments are intact. 3. Moderate grade MCL sprain. 4. Diffuse patellar tendinosis. No patellar tendon rupture. The quadriceps tendon is intact. Low-grade partial-thickness tear involving medial patellofemoral ligament at its patellar insertion. 5. Suggestion of contusion involving medial periphery of patella and medial periphery of proximal tibia extending to medial tibial plateau. No fracture or dislocation. Mild tricompartmental osteoarthritis and low-grade chondromalacia most notably in medial femoral tibial compartment. 6. Small joint effusion and a Robles's cyst as above. No gross loose bodies. Dictated by: Lloyd Quan M.D. on 06/04/2023 at 15:50 Approved by: Lloyd Quan M.D. on 06/04/2023 at 15:56
== END ==
PROVIDERS: Family Provider Physician Assistant; PCP Physician Assistant; Referring Provider Nurse Practitioner Family; Visit Provider Nurse Practitioner Family
DX: S83.232A Complex tear of medial meniscus, current injury, left knee, initial encounter (principal); S83.412A Sprain of medial collateral ligament of left knee, initial encounter; S76.112A Strain of left quadriceps muscle, fascia and tendon, initial encounter; M25.562 Pain in left knee; M17.12 Unilateral primary osteoarthritis, left knee; M94.262 Chondromalacia, left knee; M25.462 Effusion, left knee; M71.22 Synovial cyst of popliteal space [Baker], left knee
CPT/HCPCS: 73721

== ENCOUNTER → 2023-06-18 08:29 | Outpatient (CLI) | payer OTHER, SELFPAY ==
--- NOTE | 2023-06-18 | DI.MRI.S_ITS ---
PROCEDURE: MR CERVICAL SPINE WO CON INDICATIONS: Radiculopathy, lumbar region TECHNIQUE: Noncontrast sagittal T1 spin echo and T2 fast spin echo, sagittal STIR, foraminal oblique sagittal T2 fast spin echo, and axial gradient echo or T2 fast spin echo through the cervical spine. COMPARISON: None. FINDINGS: Image quality: Diagnostic, with note made of motion artifact. Alignment and Curvature: There is normal bony alignment. Bone Marrow: Marrow demonstrates normal overall signal. Spinal Cord: Visualized spinal cord has normal size and signal. No cerebellar tonsillar herniation. Paraspinous Soft Tissues: No paravertebral masses. Prevertebral soft tissues are normal in thickness. C2-C3: The disc height is well-preserved. Loss of disc signal is seen at this level. Mild to moderate disc osteophyte complex is seen. At least moderate facet hypertrophy is seen. There is moderate right-sided and at least moderate left-sided neural foraminal narrowing. Mild central canal narrowing is seen. C3-C4: Moderate loss of disc height is seen. Loss of disc signal is seen. Moderate disc osteophyte complex is seen, which is eccentric to the left. There is a left foraminal disc osteophyte protrusion, as on series 5, image 19. Moderate facet joint hypertrophy is seen. There is moderate to severe bilateral neural foraminal narrowing, right worse than left. Mild to moderate central canal narrowing is seen. C4-C5: Mild loss of disc height is seen. Loss of disc signal is seen. Mild to moderate disc osteophyte complex is seen, with a mild central disc osteophyte protrusion. There is at least moderate right-sided and moderate left-sided facet hypertrophy. There is moderate to severe right-sided and at least moderate left-sided neural foraminal narrowing. Mild central canal narrowing is seen. C5-C6: The disc height and disk signal are well-preserved. A mild degree of generalized disc osteophyte complex is seen. There is at least moderate right-sided and moderate left-sided facet hypertrophy. There is moderate to severe right-sided and at least moderate left-sided neural foraminal narrowing. No central canal narrowing is seen. C6-C7: The disc height and disk signal are well-preserved. A mild degree of generalized disc osteophyte complex is seen. Mild to moderate facet hypertrophy is seen. Moderate bilateral neural foraminal narrowing is seen. Mild central canal narrowing is seen. C7-T1: The disc height is well-preserved. Loss of disc signal is seen at this level. A mild degree of generalized disc osteophyte complex is seen. Moderate facet joint hypertrophy is seen. Moderate bilateral neural foraminal narrowing is seen. No central canal narrowing is seen. IMPRESSION: Multiple levels of cervical spine degenerative change can be seen, which are overall worst at the C3-C4 level. Dictated by: Jigar Ramirez M.D. on 06/18/2023 at 12:56 Approved by: Jigar Ramirez M.D. on 06/18/2023 at 13:00
== END ==
PROVIDERS: Family Provider Physician Assistant; PCP Physician Assistant; Referring Provider Physical Medicine & Rehabilitation Pain Medicine; Visit Provider Physical Medicine & Rehabilitation Pain Medicine
DX: M47.22 Other spondylosis with radiculopathy, cervical region (principal); M48.02 Spinal stenosis, cervical region
CPT/HCPCS: 72141

== ENCOUNTER → 2023-06-23 08:31 | Outpatient (CLI) | payer OTHER, SELFPAY ==
--- NOTE | 2023-06-23 08:34 | DI.MRI.S_ITS ---
PROCEDURE: MR LUMBAR SPINE WO CON INDICATIONS: Radiculopathy, lumbar region TECHNIQUE: Noncontrast sagittal T1 spin echo and T2 fast echo, sagittal STIR, and T2 fast spin echo through the lumbar spine. In cases with scoliosis, additional coronal T2 fast spin echo may be performed. COMPARISON: None. FINDINGS: Image quality: Excellent. Alignment and Curvature: There is normal bony alignment. Bone Marrow: Marrow is of normal overall signal. No acute vertebral body compression fractures. Spinal Cord: Conus medullaris terminates at the L1 level. Visualized cord demonstrates normal signal and size. Paraspinous Soft Tissues: No paravertebral masses. T12-L1: Minimal diffuse disc bulge with a central annular tear with no significant foraminal or central canal stenosis. L1-L2: Diffuse disc bulge with no significant foraminal or central canal stenosis. L2-L3: Diffuse disc bulge with no significant foraminal or central canal stenosis. L3-L4: Disc space narrowing right paracentral/foraminal disc protrusion. Moderate right and mild left foraminal stenosis. The disc protrusion encroaches upon the right lateral recess and exiting nerve root. Mild central canal stenosis. L4-L5: Diffuse disc bulge causes mild bilateral foraminal stenosis. Mild central canal stenosis. L5-S1: No significant disc bulge. The foramina and central canal are patent. IMPRESSION: 1. Multilevel lumbar spondylosis causing foraminal and central canal stenosis as detailed above. 2. No acute abnormality. 3. No abnormality of the visualized spinal cord. Dictated by: Malik Ruiz M.D. on 06/25/2023 at 11:15 Approved by: Malik Ruiz M.D. on 06/25/2023 at 11:20
== END ==
PROVIDERS: Family Provider Physician Assistant; Referring Provider Physical Medicine & Rehabilitation Pain Medicine; Visit Provider Physical Medicine & Rehabilitation Pain Medicine
DX: M47.26 Other spondylosis with radiculopathy, lumbar region (principal); M48.061 Spinal stenosis, lumbar region without neurogenic claudication
CPT/HCPCS: 72148

== ENCOUNTER 2023-08-20 13:02 | Emergency (ER) | payer OTHER, SELFPAY ==
[2023-08-20] VITALS (9 sets, daily range): BP systolic 116–140; BP diastolic 73–91; PULSE 59–71; RESP 11–19; TEMP 36.4; O2SAT 94–96; BMI 24.7
--- NOTE | 2023-08-20 13:10 | DI.RAD.S_ITS ---
PROCEDURE: XR CHEST 1V INDICATIONS: chest pain TECHNIQUE: One view of the chest was acquired. COMPARISON: [facility], CR, XR CHEST 1V, 12/11/2021, 17:15. FINDINGS: Surgical changes and devices: None. Lungs and pleura: Lungs are clear. No pleural effusions or pneumothorax. Mediastinum: Mediastinal contours appear normal. Heart size is normal. Bones and chest wall: No suspicious bony lesions. Overlying soft tissues appear unremarkable. IMPRESSION: No acute cardiopulmonary abnormality is seen. Dictated by: Damon Foley M.D. on 08/20/2023 at 13:35 Approved by: Damon Foley M.D. on 08/20/2023 at 13:35
[2023-08-20 13:35] LABS: Add Manual Diff / Slide Review NO; Basophils Absolute Auto 100 /uL (0-100); Basophils Percent Auto 2.1 % (0-2); Eosinophils Absolute Auto 500 /uL (0-450); Eosinophils Percent Auto 7.4 % (2-4); Hemoglobin 15.1 g/dL (13.5-17.5); Lymphocytes Absolute Auto 2300 /uL (1100-4500); Lymphocytes Percent Auto 37.4 % (25-40); Mean Corpuscular HGB Conc 34.3 % (30-36); Mean Corpuscular Volume 93.3 fL (80-100); Monocytes Absolute Auto 600 /uL (0-900); Monocytes Percent Auto 9.8 % (3-14); Neutrophils Absolute Auto 2700 /uL (1500-7000); Neutrophils Percent Auto 43.3 % (50-75); Platelet Count 226 X10^3/uL (150-400); Red Blood Cell Count 4.72 X10^6/uL (4.5-5.9); White Blood Cell Count 6.2 X10^3/uL (4.5-11.0)
--- NOTE | 2023-08-20 13:41 | ED_ITS ---
HPI - Chest Pain General Chief Complaint: Chest Pain Stated Complaint: dr reffered for cardio issues/verify cardiio/pulm Time Seen by Provider: 08/20/23 13:11 Source: patient Mode of arrival: Ambulatory Limitations: no limitations History of Present Illness HPI narrative: 62-year-old male with history of COPD, history of abnormal coronary artery anatomy presents by private vehicle from home for approximately 3 weeks of intermittent chest tightness and shortness of breath. Patient can not identify what makes the symptoms come or go. 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 Currently pain free, denying any shortness of breath currently. Related Data Home Medications Medication Instructions Recorded Confirmed atorvastatin 40 mg tablet 40 mg PO DAILY 10/14/19 06/28/22 metoprolol tartrate 50 mg tablet 50 mg PO BID 10/14/19 06/28/22 nitroglycerin 0.4 mg sublingual 0.4 mg sublingual PRN PRN Chest 10/14/19 06/28/22 tablet (Nitrostat) Pain amlodipine PO 06/28/22 06/28/22 aspirin 81 mg tablet,delayed 81 mg PO DAILY 06/28/22 06/28/22 release (Adult Aspirin Regimen) cyclobenzaprine PO 06/28/22 06/28/22 omeprazole 10 mg capsule,delayed 10 mg PO DAILY 06/28/22 06/28/22 release oxycodone PO 06/28/22 06/28/22 Previous Rx's Medication Instructions Recorded benzonatate 100 mg capsule 100 mg PO BID PRN cough #20 caps 06/28/22 Allergies Allergy/AdvReac Type Severity Reaction Status Date / Time No Known Drug Allergies Allergy Verified 06/28/22 07:20 Review of Systems Review of Systems Narrative: Negative except as noted above Patient History Social History Smoking Status: Former smoker Smoking Status: Former smoker alcohol intake frequency: holidays/special occasions only Substance Use Type: does not use Exam Initial Vital Signs Initial Vital Signs: Vital Signs Temperature 97.6 F 08/20/23 13:05 Pulse Rate 71 08/20/23 13:05 Respiratory Rate 16 08/20/23 13:05 Blood Pressure 139/81 08/20/23 13:05 Pulse Oximetry 94 08/20/23 13:05 Oxygen Delivery Method Room Air 08/20/23 13:05 Const: Awake, alert, no acute distress, nontoxic appearing Eyes: PERRL, EOMI, conjunctiva normal ENT: Atraumatic, dentition normal, mucous membranes moist Cardiac: regular rate, regular rhythm RESP: unlabored, clear bilaterally, no wheezing GI: Atraumatic, soft, nontender, nondistended, no rebound, no guarding MSK: Atraumatic, full range of motion, pulses equal, no swelling Skin: Warm, Dry, intact, no rashes Neuro: AO x3, CN II-XII grossly intact, moves all extremities Psych: affect normal, mood normal, not suicidal, not homicidal Course Orders Ordered: ED Orders 08/20/23 13:10 XR chest 1V Stat EKG-12 Lead Stat 08/20/23 13:26 Complete Blood Count AUTO DIFF Stat Comprehensive Metabolic Panel Stat D Dimer Stat Lipase Stat Magnesium Stat PTT Partial Thromboplastin Timothy Stat Prothrombin Time INR Stat Troponin & CK Cardiac Panel Stat Vital Signs Vital signs: Vital Signs - 8 hr 08/20/23 13:05 08/20/23 13:14 08/20/23 13:30 Temperature 97.6 F Pulse Rate 71 71 67 Respiratory Rate 16 14 12 Blood Pressure 139/81 Pulse Oximetry 94 94 Oxygen Delivery Method Room Air 08/20/23 13:36 08/20/23 13:36 Temperature Pulse Rate 67 Respiratory Rate 18 Blood Pressure 140/91 H Pulse Oximetry 96 Oxygen Delivery Method MDM - Chest Pain Differential Diagnosis Differential diagnosis: Likely pneumothorax, unstable angina pectoris, atypical chest pain and costochondritis Lab Data 08/20/23 13:26 08/20/23 13:26 Labs: Lab Results 08/20/23 Range/Units 13:26 WBC 6.2 (4.5-11.0) X10^3/uL RBC 4.72 (4.5-5.9) X10^6/uL Hgb 15.1 (13.5-17.5) g/dL Hct 44.0 (41-53) % MCV 93.3 (80-100) fL MCH 32.0 (26-34) PG MCHC 34.3 (30-36) % RDW 12.0 (11.6-14.8) % Plt Count 226 (150-400) X10^3/uL Neut % (Auto) 43.3 L (50-75) % Lymph % (Auto) 37.4 (25-40) % [place] % (Auto) 9.8 (3-14) % Eos % (Auto) 7.4 H (2-4) % Baso % (Auto) 2.1 H (0-2) % Neut # (Auto) 2700 (5048-2001) /uL Lymph # (Auto) 2300 (7927-6414) /uL [place] # (Auto) 600 (0-900) /uL Eos # (Auto) 500 H (0-450) /uL Baso # (Auto) 100 (0-100) /uL PT 12.7 H (9.4-12.5) SECONDS INR 1.1 (0.9-1.3) APTT 40 H (25.1-36.5) SECONDS D-Dimer 344 (<500) ng/ml Sodium 138 (137-145) mmol/L Potassium 4.0 (3.4-5.1) mmol/L Chloride 104 (98-107) mmol/L Carbon Dioxide 26 (22-32) mmol/L BUN 10 (9-20) mg/dL Creatinine 0.87 (0.66-1.25) mg/dL Estimated GFR > 60 (>60) mL/min BUN/Creatinine Ratio 11.5 (6-22) Glucose 100 (80-110) mg/dL Calcium 9.4 (8.4-10.2) mg/dL Magnesium 2.0 (1.6-2.3) mg/dL Total Bilirubin 0.8 (0.2-1.3) mg/dL AST 50 (17-59) IU/L ALT 55 H (<50) IU/L Alkaline Phosphatase 53 (38-126) U/L Total Creatine Kinase 97 (55-170) U/L Troponin I < 0.012 (0.01-0.034) ng/mL Total Protein 7.5 (6.3-8.2) g/dL Albumin 4.4 (3.5-5.0) g/dL Globulin 3.1 (1.7-4.1) g/dL Albumin/Globulin Ratio 1.4 (1.0-2.8) Lipase 51 (23-300) U/L ECG Data Interpretation: Normal sinus rhythm, normal axis, normal NV intervals, no STT wave changes, no STEMI MDM Narrative Medical decision making narrative: Well-appearing patient with several weeks of intermittent symptoms. Physical exam is unremarkable, no wheezing, no murmurs auscultated. EKG is normal sinus rhythm without concerning findings. Laboratory work reviewed, no acute abnormalities identified. Sensitivity troponin is undetectable, D-dimer is negative, chest x-ray is reviewed, unremarkable. Heart score 2 based on troponin, story, age, known risk factors. Patient counseled of all lab and imaging findings at bedside, I explained I do not know the cause of his symptoms but strongly encouraged the patient to follow up with his tempering kiln tender. ED return precautions discussed at bedside. Patient expressed understanding of the plan and is in agreement at this time. All questions answered at the time of discharge. Discharge Plan Departure Patient Disposition: Home Clinical Impression: Chest pain Qualifiers: Chest pain type: unspecified Qualified Code(s): R07.9 - Chest pain, unspecified Instructions: DI for Chest Pain Prescriptions: No Action amlodipine PO omeprazole 10 mg capsule,delayed release(DR/EC) 10 mg PO DAILY aspirin [Adult Aspirin Regimen] 81 mg tablet,delayed release (DR/EC) 81 mg PO DAILY cyclobenzaprine PO oxycodone PO benzonatate 100 mg capsule 100 mg PO BID PRN (Reason: cough) Qty: 20 0RF atorvastatin 40 mg tablet 40 mg PO DAILY metoprolol tartrate 50 mg tablet 50 mg PO BID nitroglycerin [Nitrostat] 0.4 mg tablet, sublingual 0.4 mg sublingual PRN PRN (Reason: Chest Pain) Referrals: ProviderRula [Primary Care Provider] - Stand Alone Forms: Patient Portal/API
[2023-08-20 13:43] LABS: INR 1.1 (0.9-1.3); Prothrombin Time 12.7 SECONDS (9.4-12.5)
[2023-08-20 13:46] LABS: PTT Partial Thromboplastin Tim 40 SECONDS (25.1-36.5)
[2023-08-20 13:48] LABS: Alanine Aminotransferase 55 IU/L (<50); Albumin 4.4 g/dL (3.5-5.0); Albumin Globulin Ratio 1.4 (1.0-2.8); Alkaline Phosphatase 53 U/L (38-126); Aspartate Aminotransferase 50 IU/L (17-59); BUN Creatinine Ratio 11.5 (6-22); Bilirubin Total 0.8 mg/dL (0.2-1.3); Blood Urea Nitrogen 10 mg/dL (9-20); Calcium 9.4 mg/dL (8.4-10.2); Carbon Dioxide 26 mmol/L (22-32); Chloride 104 mmol/L (98-107); Creatine Kinase 97 U/L (55-170); Estimated Glomerular Filt Rate > 60 mL/min (>60); Globulin 3.1 g/dL (1.7-4.1); Glucose 100 mg/dL (80-110); HEMOLYSIS < 15 (0-50); Lipase 51 U/L (23-300); Sodium 138 mmol/L (137-145); Total Protein 7.5 g/dL (6.3-8.2)
[2023-08-20 13:52] LABS: D Dimer 344 ng/ml (<500)
[2023-08-20 14:00] LABS: Troponin I < 0.012 ng/mL (0.01-0.034)
== END 2023-08-20 14:55 | disposition home or self-care (01) ==
PROVIDERS: Emergency Provider Emergency Medicine; Family Provider Physician Assistant
DX: R07.9 Chest pain, unspecified (principal); Z87.891 Personal history of nicotine dependence
CPT/HCPCS: 36415; 71045; 80053; 82550; 83690; 83735; 84484; 85025; 85379; 85610; 85730; 93005; 99283; 99284

== ENCOUNTER → 2023-09-11 09:27 | Outpatient (CLI) | payer OTHER, SELFPAY ==
[2023-09-11 10:56] LABS: Hemoglobin A1C% w Est Avg Glu 5.7 % (4.0-6.0)
[2023-09-11 11:08] LABS: Cholesterol 136 mg/dL (140-199); HDL Cholesterol 43 mg/dL (40-60); LDL Cholesterol Calculated 72 mg/dL (<100); Triglycerides 107 mg/dL (35-150)
[2023-09-11 11:24] LABS: Free T4, Direct Thyroxine 1.36 ng/dL (0.78-2.19)
[2023-09-11 11:38] LABS: Thyroid Stimulating Hormone 1.32 uIU/mL (0.47-4.68)
== END ==
PROVIDERS: Family Provider Physician Assistant; Referring Provider Internal Medicine Cardiovascular Disease; Visit Provider Internal Medicine Cardiovascular Disease
DX: Z13.1 Encounter for screening for diabetes mellitus (principal); E78.5 Hyperlipidemia, unspecified
CPT/HCPCS: 36415; 80061; 83036; 84439; 84443

== ENCOUNTER → 2023-10-13 09:12 | Outpatient (CLI) | payer OTHER, SELFPAY ==
--- NOTE | 2023-10-13 | DI.ECHO.S_ITS ---
[facility]---------+ [facility] +---------+ : : [address] : : : : [id number] : : : : Phone: [phone] Echocardiogram Report + + :Name: JOSUE MCCOY Study Date: 10/13/2023 Height: 73 in : :[facility] ReadingLocation: Weight: 190 lb : : Gender: Male BSA: 2.1 m2 : :: 1960 Age: 62 yrs BP: 141/97 mmHg: :Reason For Study: HISTORY OF CARDIOMYOPATHY, CAD, CHEST PAIN : :Ordering Physician: HUMBERTO, : :SAVANNAH Hopper Performed By: Rula Ledezma : :Referring: SAVANNAH RICHARDSON : + + Interpretation Summary The ejection fraction is estimated to be 55-60%. Diastolic parameters suggest probable normal left ventricular diastolic function and normal filling pressures. The right ventricle is normal in size and function. No significant valvular abnormalities. Pulmonary artery pressures cannot be estimated because of the lack of a measurable TR jet velocity but the IVC suggests a CVP of around 3 mmHg. Compared to the prior study dated 12/12/2021, no significant change. Procedure: A two-dimensional transthoracic echocardiogram with color flow and Doppler was performed. The study quality was technically adequate. Comparison is made with the echocardiogram of 12/12/2021. The patient was in sinus rhythm with heart rates between 64-71 bpm during the exam. Left Ventricle: The left ventricle is normal in size and wall thickness. The ejection fraction is estimated to be 55-60%. Diastolic parameters suggest probable normal left ventricular diastolic function and normal filling pressures. Right Ventricle: The right ventricle is normal in size and function. Atria: The left atrial size is normal. Right atrial size is normal. There is no Doppler evidence for an interatrial shunt. The atrial septum is aneurysmal. Mitral Valve: The mitral valve is normal in structure and function. There is trace mitral regurgitation. Aortic Valve: The aortic valve is trileaflet. The aortic valve opens well. There is no aortic valve stenosis. No aortic regurgitation is present. Tricuspid Valve: The tricuspid valve is normal in structure and function. There is trace tricuspid regurgitation. Pulmonary artery pressures cannot be estimated because of the lack of a measurable TR jet velocity but the IVC suggests a CVP of around 3 mmHg. Pulmonic Valve: The pulmonic valve leaflets are thin and pliable; valve motion is normal. There is no pulmonic valvular regurgitation. Great Vessels: The aortic root is normal size. The dimensions of the ascending aorta are normal. The IVC is of normal diameter and collapses greater than 50% with a sniff. This suggests a low right atrial pressure of 3 mm Hg. Pericardium/ Pleura There is no pericardial effusion. There is no pleural effusion. MMode/2D Measurements & Calculations LVIDd: 5.3 cm LVOT diam: 2.5 cm LVIDs: 3.9 cm Ao root diam: 3.8 cm FS: 27.5 % asc Aorta Diam: 3.1 cm IVSd: 1.0 cm Ao Arch Diam (Prox Trans): 3.2 cm LVPWd: 0.77 cm LV licea. diameter/BSA (cm/m^2): 2.5 LV sys. diameter/BSA (cm/m^2): 1.8 LA A2 area: 15.2 cm2 RA long axis: 4.6 cm LA A4 area: 17.2 cm2 RA area: 10.2 cm2 LA length (vol): 4.7 cm RA vol: 19.3 ml LA vol: 47.5 ml RA : 9.2 ml/m2 LA vol index: 22.6 ml/m2 IVC diam: 1.4 cm RVD1 (basal): 3.6 cm TAPSE: 2.3 cm Doppler Measurements & Calculations Ao V2 max: 84.8 cm/sec LVOT Max Primitivo: 70.2 cm/sec Ao V2 mean: 59.7 cm/sec LV V1 max P.0 mmHg Ao max P.9 mmHg LV V1 VTI: 15.5 cm Ao mean P.6 mmHg KARI(I,D): 4.0 cm2 Ao V2 VTI: 18.4 cm KARI(V,D): 4.0 cm2 sev ratio: 0.84 KARI indexed to BSA (cm^2/m^2): 1.9 MV E max primitivo: 51.7 cm/sec PA V2 max: 94.6 cm/sec MV A max primitivo: 60.7 cm/sec PA V2 mean: 68.5 cm/sec MV E/A: 0.85 PA mean P.1 mmHg Med Peak E' Primitivo: 6.4 cm/sec PA pr(Accel): 37.9 mmHg E/E' med: 8.1 Lat Peak E' Primitivo: 8.6 cm/sec E/E' lat: 6.0 E/e' average: 7.1 MV dec time: 0.27 sec SV(LVOT): 74.4 ml Reading Physician:09:35 PM
== END ==
LOC: ECHO 09:13
PROVIDERS: Family Provider Physician Assistant; Referring Provider Internal Medicine Cardiovascular Disease; Visit Provider Internal Medicine Cardiovascular Disease
DX: R07.9 Chest pain, unspecified (principal); I25.10 Atherosclerotic heart disease of native coronary artery without angina pectoris; I10 Essential (primary) hypertension; E78.5 Hyperlipidemia, unspecified; Z86.79 Personal history of other diseases of the circulatory system
CPT/HCPCS: 93306

== ENCOUNTER → 2023-10-23 09:23 | Outpatient (CLI) | payer OTHER, SELFPAY ==
--- NOTE | 2023-10-25 02:28 | DI.NM.S_ITS ---
DATE OF SERVICE: 10/23/2023 PROCEDURE: Exercise perfusion study. INDICATIONS: Chest pain, multivessel coronary artery disease, hypertension, hyperlipidemia. RADIOPHARMACEUTICAL: 25.3 millicurie technetium-99m Myoview IV was injected at stress and 25 millicurie technetium-99m Myoview IV was injected at rest. CARDIAC STRESS: The patient underwent exercise perfusion study under the supervision of an attending staff. He walked on Rigoberto protocol for 7 minutes and 23 seconds, achieved maximum heart rate of 147, which was 92 percent of target heart rate. Resting blood pressure 122/80 and peak blood pressure 144/82 mmHg. Achieved 10.1 METs of workload. HIEU positive 11%. Baseline rhythm was sinus with left axis. During stress, no convincing ischemic EKG changes seen. No new significant arrhythmias. There was also poor R-wave progression. The patient did not have any chest pain. Had dyspnea and fatigue. RAW DATA: There is a significant subdiaphragmatic activity. Hot spot near the inferior border of the heart. GATED STUDY: Stress LV ejection fraction 64% without any obvious wall motion abnormalities. Resting end-diastolic volume 121 mL. TID ratio 0.80, which is within normal limits. Lung/heart ratio 0.35, which is within normal limits. MYOCARDIAL PERFUSION SCAN: Stress supine, resting supine, and stress prone images were compared to each other. Resting supine images revealed small size, mildly decreased perfusion of distal inferior wall extending into the distal inferolateral wall. Stress supine images revealed a small to moderate size, mildly decreased perfusion of base to mid inferior wall as well as slightly decreased perfusion of inferior apex. During stress prone images, overall inferior wall defect got improved. There was slightly persistent distal inferolateral wall defect seen. No reversible ischemia. CONCLUSION: No obvious reversible ischemia. There is a significant subdiaphragmatic shadow and hot spot near the inferior border of the heart. Predominantly fixed small distal inferolateral defect could be due to persistent tissue attenuation artifact. No obvious wall motion abnormalities. The patient had a perfusion study in November,, at that time also had similar perfusion abnormalities. Overall significant improvement during stress prone images. In this study, the patient walked on Rigoberto protocol for 7 minutes and 23 seconds. In November,, he was able to walk for about 8 minutes and 40 seconds. Overall, low- risk myocardial perfusion scan. Derick Mcnamara - [employer]/seferino/kt doc#: [id number]/job#: [id number] dd: 10/24/2023 16:43:00 dt: 10/25/2023 02:19:00 DICTATING MD/COPIES TO: Milton Dang MD COPIES MNE: JUANCARLOS;
== END ==
LOC: NUCM 09:23
PROVIDERS: Family Provider Physician Assistant; Referring Provider Internal Medicine Cardiovascular Disease; Visit Provider Internal Medicine Cardiovascular Disease
DX: Z86.79 Personal history of other diseases of the circulatory system (principal); R07.9 Chest pain, unspecified; I25.10 Atherosclerotic heart disease of native coronary artery without angina pectoris
CPT/HCPCS: 78452; 93017; A9502

== ENCOUNTER 2024-06-22 12:14 | Emergency (ER) | payer OTHER, SELFPAY ==
[2024-06-22 12:17] VITALS: BP 137/78; PULSE 68; RESP 16; TEMP 36.6; O2SAT 97; BMI 24.4
--- NOTE | 2024-06-22 12:20 | DI.RAD.S_ITS ---
PROCEDURE: XR KNEE RT 3V INDICATIONS: pain, heard pop TECHNIQUE: 3 views of the knee were acquired. COMPARISON: None. FINDINGS: Bones: No fractures or dislocations. No suspicious bony lesions. Soft tissues: No joint effusion. No suspicious soft tissue calcifications. IMPRESSION: No acute bony abnormality or significant effusion. Dictated by: Anderson Chen M.D. on 06/22/2024 at 12:42 Approved by: Anderson Chen M.D. on 06/22/2024 at 12:45
--- NOTE | 2024-06-22 12:50 | ED_ITS ---
HPI - Extremity Injury (Lower) General Chief Complaint: Extremity Injury, Lower Stated Complaint: R Knee Pain Time Seen by Provider: 06/22/24 12:39 Source: patient, family and RN notes reviewed Mode of arrival: Ambulatory Limitations: no limitations History of Present Illness HPI Narrative: This is a 63-year-old male history of prior myocardial infarction, hypertension, dyslipidemia, osteoarthritis on aspirin daily who presents with complaint of right knee pain. Patient was squatting stood up and felt a pop and had pain on the medial side of his knee. Since then he has had persistent pain throughout the knee. He states feels a little bit unstable with weight-bearing. He has been using crutches today was able to ambulate on a yesterday. Denies any swelling, no warmth no erythema, no ecchymosis that he appreciates. He states he feels like it sort of bruise on the medial side of his knee. Patient states has not had prior issues with this knee in the past. Has had prior meniscal surgery on the left knee and had a similar type injury that took about a month or so to heal on the left knee in the past. Patient states former smoker. No regular alcohol, no recreational drugs. Related Data Home Medications Medication Instructions Recorded Confirmed atorvastatin 40 mg tablet 40 mg PO DAILY 10/14/19 06/28/22 metoprolol tartrate 50 mg tablet 50 mg PO BID 10/14/19 06/28/22 nitroglycerin 0.4 mg sublingual 0.4 mg sublingual PRN PRN Chest 10/14/19 06/28/22 tablet (Nitrostat) Pain amlodipine PO 06/28/22 06/28/22 aspirin 81 mg tablet,delayed 81 mg PO DAILY 06/28/22 06/28/22 release (Adult Aspirin Regimen) cyclobenzaprine PO 06/28/22 06/28/22 omeprazole 10 mg capsule,delayed 10 mg PO DAILY 06/28/22 06/28/22 release oxycodone PO 06/28/22 06/28/22 Previous Rx's Medication Instructions Recorded benzonatate 100 mg capsule 100 mg PO BID PRN cough #20 caps 06/28/22 Allergies Allergy/AdvReac Type Severity Reaction Status Date / Time No Known Drug Allergies Allergy Verified 06/28/22 07:20 Review of Systems Review of Systems ROS Unobtainable: All systems reviewed & are unremarkable except as noted in HPI and below Patient History Social History Smoking Status: Former smoker Smoking Status: Former smoker alcohol intake frequency: holidays/special occasions only Substance Use Type: does not use Exam Narrative Exam Narrative: GENERAL: Alert and oriented x three, well-appearing male in mild distress. HEENT: Head normocephalic, atraumatic, EOMI, pupils reactive, face symmetric, moist mucous membranes NECK: Supple, full range of motion EXTREMITIES: Normal range of motion, no clubbing or edema. Neurovascularly intact. Patient has tenderness over the medial knee of the tibial plateau, nontender otherwise throughout the knee, lower extremity or thigh. Patella appears in place. Patient has good range of motion. No warmth, erythema, no edema or swelling, no ballotable effusion. Joint laxity testing patient has increased pain with valgus, no obvious joint laxity on exam. NEUROLOGICAL: Cranial nerves II through XII grossly intact. Moving all extremities SKIN: Warm, dry, no petechiae, no rashes or lesions. Initial Vital Signs Initial Vital Signs: Vital Signs Temperature 97.8 F 06/22/24 12:17 Pulse Rate 68 06/22/24 12:17 Respiratory Rate 16 06/22/24 12:17 Blood Pressure 137/78 06/22/24 12:17 Pulse Oximetry 97 06/22/24 12:17 Oxygen Delivery Method Room Air 06/22/24 12:17 Course Orders Ordered: ED Orders 06/22/24 12:20 XR knee RT 3V Stat Vital Signs Vital signs: Vital Signs - 8 hr 06/22/24 12:17 Temperature 97.8 F Pulse Rate 68 Respiratory Rate 16 Blood Pressure 137/78 Pulse Oximetry 97 Oxygen Delivery Method Room Air MDM - Extremity Injury (Lower) Imaging Data Extremity x-ray #1: Radiologist's Impression: [address] [address] XRay Report Signed Patient: Derick Mcnamara MR#: [id number] : 1960 Acct:[id number] Age/Sex: 63 / M Date of Service: 06/22/24 Loc: ED Accession Number: [id number] Procedure: XR knee RT 3V Ordering Provider: Mank,Jahaira C D.O. PROCEDURE: XR KNEE RT 3V INDICATIONS: pain, heard pop TECHNIQUE: 3 views of the knee were acquired. COMPARISON: None. FINDINGS: Bones: No fractures or dislocations. No suspicious bony lesions. Soft tissues: No joint effusion. No suspicious soft tissue calcifications. IMPRESSION: No acute bony abnormality or significant effusion. Dictated by: Anderson Chen M.D. on 06/22/2024 at 12:42 Approved by: Anderson Chen M.D. on 06/22/2024 at 12:45 [facility] Narrative Medical decision making narrative: 63-year-old male pain in the left medial knee between the joints above the tibial plateau. Patient has increased pain with valgus testing as well. Suspect patient may have had tendon or ligamentous injury. X-ray shows no acute change. Plan for knee immobilizer, weightbear as tolerated and follow up next 1-2 weeks if not having any improvement. Patient feels comfortable with this plan. Right knee x-ray shows no acute change. Discharge Plan Departure Patient Disposition: Home Clinical Impression: Strain of right knee Instructions: DI for Knee Sprain Activity Restrictions/Additional Instructions: Follow up with primary care and/or orthopedic surgery in the next 1-2 weeks if symptoms are not improving. You may weightbear as tolerated, continue to use crutches as needed. Take your home pain medications as needed. Splint Care: Keep knee immobilizer clean and dry. Elevated affected body part to decrease swelling. OK to use ice pack on the affected body part. Use for 15-20 minutes each time, for 5-6x per day. If you develop worsening pain, numbness, tingling, discoloration of the affected body part, adjust the knee immobilizer, and either see your doctor for an urgent re-assessment, or return to the Emergency Department. Return to the Emergency Department for any new or worsening symptoms. Prescriptions: No Action amlodipine PO omeprazole 10 mg capsule,delayed release(DR/EC) 10 mg PO DAILY aspirin [Adult Aspirin Regimen] 81 mg tablet,delayed release (DR/EC) 81 mg PO DAILY cyclobenzaprine PO oxycodone PO benzonatate 100 mg capsule 100 mg PO BID PRN (Reason: cough) Qty: 20 0RF atorvastatin 40 mg tablet 40 mg PO DAILY metoprolol tartrate 50 mg tablet 50 mg PO BID nitroglycerin [Nitrostat] 0.4 mg tablet, sublingual 0.4 mg sublingual PRN PRN (Reason: Chest Pain) Referrals: ProviderRula [Primary Care Provider] - Stand Alone Forms: Patient Portal/API
== END 2024-06-22 13:30 | disposition home or self-care (01) ==
PROVIDERS: Emergency Provider Emergency Medicine; Family Provider Physician Assistant
DX: S83.411A Sprain of medial collateral ligament of right knee, initial encounter (principal); I25.2 Old myocardial infarction; I10 Essential (primary) hypertension
CPT/HCPCS: 73562; 99282; 99283

== ENCOUNTER → 2025-04-23 07:49 | Outpatient (CLI) | payer OTHER, SELFPAY ==
[2025-04-23 08:26] LABS: Add Manual Diff / Slide Review NO; Hematocrit 43.2 % (41-53); Hemoglobin 15.0 g/dL (13.5-17.5); Lymphocytes Absolute Auto 1900 /uL (1100-4500); Mean Corpuscular HGB Conc 34.6 % (30-36); Mean Corpuscular Hemoglobin 32.7 PG (26-34); Mean Corpuscular Volume 94.4 fL (80-100); Platelet Count 208 X10^3/uL (150-400)
[2025-04-23 08:29] LABS: Hemoglobin A1C% w Est Avg Glu 5.7 % (4.0-6.0)
[2025-04-23 08:58] LABS: Alanine Aminotransferase 48 IU/L (<50); Albumin 4.3 g/dL (3.5-5.0); Albumin Globulin Ratio 1.6 (1.0-2.8); Alkaline Phosphatase 65 U/L (38-126); Blood Urea Nitrogen 17 mg/dL (9-20); Calcium 9.4 mg/dL (8.4-10.2); Carbon Dioxide 26 mmol/L (22-32); Chloride 107 mmol/L (98-107); Cholesterol 144 mg/dL (140-199); Estimated Glomerular Filt Rate > 60 mL/min (>60); Globulin 2.7 g/dL (1.7-4.1); Glucose 116 mg/dL (70-99); HDL Cholesterol 47 mg/dL (40-60); HEMOLYSIS < 15 (0-50); Magnesium 2.1 mg/dL (1.6-2.3); Potassium 4.2 mmol/L (3.4-5.1); Sodium 141 mmol/L (137-145); Total Protein 7.0 g/dL (6.3-8.2); Triglycerides 129 mg/dL (35-150)
[2025-04-23 09:13] LABS: Free T4, Direct Thyroxine 1.29 ng/dL (0.78-2.19)
[2025-04-23 09:27] LABS: Thyroid Stimulating Hormone 1.76 uIU/mL (0.47-4.68)
[2025-05-03 14:05] LABS: Percent Free Testosterone 1.84
== END ==
PROVIDERS: Family Provider Physician Assistant; Referring Provider Internal Medicine Cardiovascular Disease; Visit Provider Internal Medicine Cardiovascular Disease
DX: E78.5 Hyperlipidemia, unspecified (principal); I10 Essential (primary) hypertension; I25.10 Atherosclerotic heart disease of native coronary artery without angina pectoris; R53.83 Other fatigue
CPT/HCPCS: 36415; 80053; 80061; 83036; 83735; 84402; 84403; 84439; 84443; 85025